=== PATIENT | male | born 1965 | race Caucasian/White ===

== ENCOUNTER → 2019-06-14 | Day surgery (SDC) | payer MEDICARE ==
[~2019-06-14] MED LIST: ACETAMINOPHEN 1000 MG/100 ML IV ONE; AMOXICILLIN500 M1 PO; ASPIR 8181 MG PO; BUPIVACAINE HCL 0.5% INJ 30 ML VIAL INJ ONE; CEFAZOLIN SOD 1 GM/NS 50ML 50 ML IV ONE; DEXAMETHASONE SOD PHOS INJ 4 MG/ML VIAL ONE; DILANTIN100 MG PO; GABAPENTIN300 MG PO; HYDROMORPHONE 1MG/1ML INJ ONE; JANUMET 50-5001 EACH PO; KEPPRA500 MG PO; KETOROLAC TROMETHAMINE 30 MG/ML VIAL ONE; LIDOCAINE HCL 2% LOCAL INJ 5 ML SDV VIAL INJ ONE; LOPRESSOR25 MG PO; MUPIROCIN 2% OINT 22 GM TUBE ONE; ONDANSETRON HCL INJ 2MG/ML 2ML 2 MG/ML VIAL ONE; PLAVIX75 MG PO; PROPOFOL IV EMULSION 10 MG/ML 20 ML VIAL ONE; SEVOFLURANE INHAL SOLN 250 ML PEN BTL ONE
--- OUTSIDE RECORDS SUMMARY | 2019-06-14 06:17 | XMS REPORT ---
Author Author [facility] Address Unknown Phone Unavailable Care Team Providers Care Central Office Equipment Installer Name Role Phone Patria JJ Unavailable Unavailable Payers Payer Name Policy Type Policy Number Effective Date Expiration Date Problems This patient has no known problems. Allergies, Adverse Reactions, Alerts Allergy Name Allergy Type Status Severity Reaction(s) Onset Date Inactive Date Treating Clinician Comments atorvastatin DA Active U 2019-02-25 00:00:00 No Known Allergies DA Active U 2015-08-09 00:00:00 Medications This patient has no known medications. Results Test Description Test Time Test Comments Text Results Atomic Results Result Comments ARTERIAL BLOOD GAS 2019-05-16 16:14:00 ARTERIAL BLOOD GAS PH (test code=PHA) 7.29 7.35-7.45 ARTERIAL BLOOD GAS PCO2 (test code=PCO2A) 49.7 mm Hg 35-45 ARTERIAL BLOOD GAS PO2 (test code=PO2A) 84.1 mmHg 80-100 BICARBONATE TOTAL HCO3 (test code=HCO3) 23.5 mmol/L 23.0-27.0 BASE EXCESS (test code=JEAN-CLAUDE) -3.2 mmol/L -3.0-5.0 Results called to and read back by ANESTHESIAat 14:39 - 02/20/2019; by JANES BOO RN ABG O2 SATURATION (test code=SATA) 94.5 % 90.0-98.0 ABG TYPE (test code=TYPEA) Arterial FIO2 (test code=FIO2A) 65.0 MODIFIED ALLENS (test code=MODALL) Unable CHECK PERFORMED SODIUM (test code=NA/ABG) 138.9 mEq/L 135-148 POTASSIUM (test code=K/ABG) 3.8 mEq/L 3.5-4.5 CHLORIDE (test code=CL/ABG) 107 mEq/L 98-106 GLUCOSE (test code=GLU/ABG) 194 mg/dL 74-99 HEMATOCRIT (test code=HCT/ABG) 29 % 42-52 IONIZED CALCIUM (test code=CAIABG) 0.97 mmol/L 1.1-1.37 TOTAL HGB (test code=THB) 9.7 gram/dL 13.0-17.5 HGB O2 SAT (test code=HBOSAT) 94.0 % 94.00-98.00 CARBOXYHEMOGLOBIN (test code=HOHGBT) 0.3 %totalHg 0.5-1.5 Results called to and read back by ANESTHESIAat 14:39 - 02/20/2019; by JANES BOO RN METHEMOGLOBIN (test code=METHGB) 0.2 % 0.0-1.50 O2 CONTENT (test code=O2CT) 12.9 % vol 18.0-22.0 MRI SPINE CERVICAL [id number] 11:07:00 [place] [address] Patient Name: NANCY BOO MR #: [id number] : 1965 Age/Sex: 53/M Req #: [id number] Adm Physician: Ordered by: YORDAN JJ DO Report #: [id number] Location: MRI Room/Bed: Procedure: [id number] MRI/M RI SPINE CERVICAL WO Exam Date: Exam Time: REPORT STATUS: Signed History: Pain, ne uropathy, numbness in hands and urine arm Comparison studies: None. Techn ique: Sagittal T1, T2 and IR, axial T2 and axial gradient echo Intravenous contrast: None Findings: Alignment: Normal cervical lordosis Cervi comedullary junction: No abnormalities. Patent foramen magnum. Soft tissues: No T2 hyperintense inflammatory changes. Spinal cord: Normal in size and signa l from the foramen magnum through T1 Vertebrae: No fractures, infection or neoplasm. Surgical changes of prior C6-C7 anterior cervical discectomy and fusion (ACDF) Degenerative changes: C2-C3: Mildly degenerated disc. Patent canal and foramina. C3-C4: Mildly degenerated disc. Asymmetric ri ght disc osteophyte complex with small central disc protrusion without signifi cant canal stenosis. Bilateral uncovertebral arthrosis and left facet arthrosi s with moderate bilateral foraminal stenosis. C4-C5: Mildly degenerated disc. Patent canal and foramina. C5-C6: Mildly degenerated disc. Small d isc bulge indents the thecal sac without significant canal stenosis. Mild bila teral foraminal stenosis due to uncovertebral and facet arthrosis. C6-C7: Few surgical level. Patent canal. Mild bilateral foraminal stenosis due to uncovertebral arthrosis. C7-T1: Mildly degenerated disc. Patent canal and foramina. IMPRESSION: 1. Surgical changes of prior C6-C7 ACDF. 2. Degenerative changes with mild multilevel disc degeneration and moderate b ilateral foraminal stenosis at C3-C4. No significant canal stenosis. Signed by: Dr. Eloy Rm M.D. on 04/03/2019 11:14 AM Dictated By: ELOY FARRAR MD 1114 Transc ribed By: ASIM on 04/03/19 1114 COPY TO: YORDAN JJ DO MRI SHOULDER LEFT [id number] 10:38:00 [place] [address] Patient Name: NANCY BOO MR #: [id number] : 1965 Age/Sex: 53/M Req #: [id number] Adm Physician: Ordered by: YORDAN JJ DO Report #: [id number] Location: MRI Room/Bed: Procedure: [id number] MRI/M RI SHOULDER LEFT WO Exam Date: Exam Time: REPORT STATUS: Signed MRI of the left shoulder without contrast. History: Shoulder pain. Decreased range of mot ion. Pain not responding to conservative management. Numbness. Neuralgia Comparison: None Technique: Coronal PD FS, sagital PD FS, and axial PD and PD FS. Findings: Rotator cuff: Mild rotator cuff tendinosis with mild ar ticular sided fraying involving the anterior fibers of the supraspinatus and i nfraspinatus tendons at the humeral insertion site. There are mild reactive ch anges at the adjacent humeral head. The subscapularis and teres minor tendons are intact. Osseous acromion complex: Type II acromion with mild lateral do wnsloping. Mild degenerative arthrosis at the acromioclavicular joint. Gl enohumeral joint: Mild degeneration and fraying of the labrum. The articular c artilage surfaces are intact. The humeral head is well-seated in the glenoid f starr. Biceps tendon: The biceps tendon is intact. Other findings: Nega tive for muscle denervation or osseous fracture. Impression: Mild rotator cuff tendinosis with mild articular sided fraying involving the anterior fibe rs of the supraspinatus and infraspinatus tendons at the humeral insertion sit e. There are mild reactive changes at the adjacent humeral head. Signed by: Dr. Johana Marcus M.D. on 04/03/2019 10:41 AM Dictated By: JOHANA Rivas MD, MD 104 Transcr ibed By: ASIM on 04/03/19 104 COPY TO: YORDAN JJ DO MRI ELBOW LEFT [id number] 10:19:00 [place] [address] Patient Name: NANCY BOO MR #: [id number] : 1965 Age/Sex: 53/M Req #: [id number] [facility] Physician: Ordered by: YORDAN JJ DO Report #: [id number] Location: MRI Room/Bed: Procedure: [id number] MRI/M RI ELBOW LEFT WO Exam Date: Exam Time: REPORT STATUS: Signed Left Elbow MRI wit hout contrast. History: Elbow pain. Neuropathy. Decreased range of motion. Numbness Comparison: None Technique: Coronal, sagittal, and axial PD FSE and PD FSE FS. Findings: The common extensor tendon origin is normal. The common flexor tendon origin is normal. The anterior and posterior bands of the MCL are normal. The lateral ulnar collateral ligament and radial collater al ligament proper are normal. No osteochondral lesions. Physiologic amount of fluid within the joint. Mild increased signal intensity within the ulnar nerve could be due to neuritis. The biceps and brachialis tendon inser tions are normal. The triceps tendon is normal. No fracture, osteonecrosis, or stress-related edema. Impression: Mild increased signal intensity within the ulnar nerve could be due to neuritis. Signed by: Dr. Johana gonzalez M.D. on 04/03/2019 10:21 AM Dictated By: JOHANA MARCUS MD, MD Electro nically Signed By: JOHANA MARCUS MD, MD on 04/03/19 1021 Transcribed By: ASIM on 04/03/19 1021 COPY TO: YORDAN JJ DO COAGULATION TIME [id number] 17:24:00* Test Item Value Reference Range Comments COAGULATION TIME ACTIVATED (test code=ACT) 150 seconds 62.8-88.0 COAGULATION TIME [id number] 17:24:00* Test Item Value Reference Range Comments COAGULATION TIME ACTIVATED (test code=ACT) 579 seconds 62.8-88.0 COAGULATION TIME [id number] 17:24:00* Test Item Value Reference Range Comments COAGULATION TIME ACTIVATED (test code=ACT) 570 seconds 62.8-88.0 COAGULATION TIME [id number] 17:24:00* Test Item Value Reference Range Comments COAGULATION TIME ACTIVATED (test code=ACT) 1002 seconds 62.8-88.0 COAGULATION TIME [id number] 17:24:00* Test Item Value Reference Range Comments COAGULATION TIME ACTIVATED (test code=ACT) 544 seconds 62.8-88.0 COAGULATION TIME [id number] 17:24:00* Test Item Value Reference Range Comments COAGULATION TIME ACTIVATED (test code=ACT) 123 seconds 62.8-88.0 ARTERIAL BLOOD [id number] 14:58:00* Test Item Value Reference Range Comments ARTERIAL BLOOD GAS PH (test code=PHA) 7.41 7.35-7.45 ARTERIAL BLOOD GAS PCO2 (test code=PCO2A) 40.2 mm Hg 35-45 ARTERIAL BLOOD GAS PO2 (test code=PO2A) 438.7 mmHg 80-100 BICARBONATE TOTAL HCO3 (test code=HCO3) 25.0 mmol/L 23.0-27.0 BASE EXCESS (test code=JEAN-CLAUDE) 0.3 mmol/L -3.0-5.0 ABG O2 SATURATION (test code=SATA) 98.9 % 90.0-98.0 ABG TYPE (test code=TYPEA) Arterial FIO2 (test code=FIO2A) 90.0 ABG SITE (test code=SITEA) ARTERIAL LINE MODIFIED ALLENS (test code=MODALL) Unable CHECK PERFORMED SODIUM (test code=NA/ABG) 134.6 mEq/L 135-148 POTASSIUM (test code=K/ABG) 4.5 mEq/L 3.5-4.5 CHLORIDE (test code=CL/ABG) 105 mEq/L 98-106 GLUCOSE (test code=GLU/ABG) 234 mg/dL 74-99 HEMATOCRIT (test code=HCT/ABG) 28 % 42-52 IONIZED CALCIUM (test code=CAIABG) 0.96 mmol/L 1.1-1.37 TOTAL HGB (test code=THB) 9.6 gram/dL 13.0-17.5 HGB O2 SAT (test code=HBOSAT) 98.3 % 94.00-98.00 CARBOXYHEMOGLOBIN (test code=HOHGBT) 0.3 %totalHg 0.5-1.5 Results called to and read back by DR Bee 13:56 - 02/20/2019; by MIRIAM SOTELO RN METHEMOGLOBIN (test code=METHGB) 0.3 % 0.0-1.50 O2 CONTENT (test code=O2CT) 14.5 % vol 18.0-22.0 ARTERIAL BLOOD [id number] 14:56:00* Test Item Value Reference Range Comments ARTERIAL BLOOD GAS PH (test code=PHA) 7.38 7.35-7.45 ARTERIAL BLOOD GAS PCO2 (test code=PCO2A) 44.3 mm Hg 35-45 ARTERIAL BLOOD GAS PO2 (test code=PO2A) 113.8 mmHg 80-100 BICARBONATE TOTAL HCO3 (test code=HCO3) 25.3 mmol/L 23.0-27.0 BASE EXCESS (test code=JEAN-CLAUDE) -0.1 mmol/L -3.0-5.0 ABG O2 SATURATION (test code=SATA) 97.8 % 90.0-98.0 ABG TYPE (test code=TYPEA) Arterial FIO2 (test code=FIO2A) 50.0 MODIFIED ALLENS (test code=MODALL) Unable CHECK PERFORMED SODIUM (test code=NA/ABG) 135.4 mEq/L 135-148 POTASSIUM (test code=K/ABG) 4.2 mEq/L 3.5-4.5 CHLORIDE (test code=CL/ABG) 103 mEq/L 98-106 GLUCOSE (test code=GLU/ABG) 187 mg/dL 74-99 HEMATOCRIT (test code=HCT/ABG) 41 % 42-52 IONIZED CALCIUM (test code=CAIABG) 1.09 mmol/L 1.1-1.37 TOTAL HGB (test code=THB) 14.0 gram/dL 13.0-17.5 HGB O2 SAT (test code=HBOSAT) 97.3 % 94.00-98.00 CARBOXYHEMOGLOBIN (test code=HOHGBT) 0.2 %totalHg 0.5-1.5 Results called to and read back by DR Bee 09:33 - 02/20/2019; by JOEL PATEL RN METHEMOGLOBIN (test code=METHGB) 0.3 % 0.0-1.50 O2 CONTENT (test code=O2CT) 19.3 % vol 18.0-22.0 ARTERIAL BLOOD [id number] 14:50:00* Test Item Value Reference Range Comments ARTERIAL BLOOD GAS PH (test code=PHA) 7.39 7.35-7.45 ARTERIAL BLOOD GAS PCO2 (test code=PCO2A) 39.8 mm Hg 35-45 ARTERIAL BLOOD GAS PO2 (test code=PO2A) 409.2 mmHg 80-100 BICARBONATE TOTAL HCO3 (test code=HCO3) 23.7 mmol/L 23.0-27.0 BASE EXCESS (test code=JEAN-CLAUDE) -1.1 mmol/L -3.0-5.0 ABG O2 SATURATION (test code=SATA) 99.0 % 90.0-98.0 ABG TYPE (test code=TYPEA) Arterial FIO2 (test code=FIO2A) 80.0 ABG SITE (test code=SITEA) ARTERIAL LINE MODIFIED ALLENS (test code=MODALL) Unable CHECK PERFORMED SODIUM (test code=NA/ABG) 136.5 mEq/L 135-148 POTASSIUM (test code=K/ABG) 4.5 mEq/L 3.5-4.5 CHLORIDE (test code=CL/ABG) 105 mEq/L 98-106 GLUCOSE (test code=GLU/ABG) 236 mg/dL 74-99 HEMATOCRIT (test code=HCT/ABG) 30 % 42-52 IONIZED CALCIUM (test code=CAIABG) 1.01 mmol/L 1.1-1.37 TOTAL HGB (test code=THB) 10.3 gram/dL 13.0-17.5 HGB O2 SAT (test code=HBOSAT) 98.4 % 94.00-98.00 CARBOXYHEMOGLOBIN (test code=HOHGBT) 0.3 %totalHg 0.5-1.5 Results called to and read back by DR Bee 13:20 - 02/20/2019; by JOEL PATEL RN METHEMOGLOBIN (test code=METHGB) 0.3 % 0.0-1.50 O2 CONTENT (test code=O2CT) 15.4 % vol 18.0-22.0 ARTERIAL BLOOD [id number] 14:49:00* Test Item Value Reference Range Comments ARTERIAL BLOOD GAS PH (test code=PHA) 7.41 7.35-7.45 ARTERIAL BLOOD GAS PCO2 (test code=PCO2A) 38.4 mm Hg 35-45 ARTERIAL BLOOD GAS PO2 (test code=PO2A) 349.7 mmHg 80-100 BICARBONATE TOTAL HCO3 (test code=HCO3) 23.8 mmol/L 23.0-27.0 BASE EXCESS (test code=JEAN-CLAUDE) -0.6 mmol/L -3.0-5.0 ABG O2 SATURATION (test code=SATA) 99.0 % 90.0-98.0 ABG TYPE (test code=TYPEA) Arterial FIO2 (test code=FIO2A) 80.0 MODIFIED ALLENS (test code=MODALL) Unable CHECK PERFORMED SODIUM (test code=NA/ABG) 135.7 mEq/L 135-148 POTASSIUM (test code=K/ABG) 4.8 mEq/L 3.5-4.5 CHLORIDE (test code=CL/ABG) 104 mEq/L 98-106 GLUCOSE (test code=GLU/ABG) 242 mg/dL 74-99 HEMATOCRIT (test code=HCT/ABG) 30 % 42-52 IONIZED CALCIUM (test code=CAIABG) 1.01 mmol/L 1.1-1.37 TOTAL HGB (test code=THB) 10.1 gram/dL 13.0-17.5 HGB O2 SAT (test code=HBOSAT) 98.4 % 94.00-98.00 CARBOXYHEMOGLOBIN (test code=HOHGBT) 0.3 %totalHg 0.5-1.5 Results called to and read back by DR Bee 12:51 - 02/20/2019; by JOEL PATEL RN METHEMOGLOBIN (test code=METHGB) 0.3 % 0.0-1.50 O2 CONTENT (test code=O2CT) 14.9 % vol 18.0-22.0 ARTERIAL BLOOD [id number] 14:47:00* Test Item Value Reference Range Comments ARTERIAL BLOOD GAS PH (test code=PHA) 7.45 7.35-7.45 ARTERIAL BLOOD GAS PCO2 (test code=PCO2A) 42.8 mm Hg 35-45 ARTERIAL BLOOD GAS PO2 (test code=PO2A) 420.7 mmHg 80-100 BICARBONATE TOTAL HCO3 (test code=HCO3) 29.0 mmol/L 23.0-27.0 BASE EXCESS (test code=JEAN-CLAUDE) 4.6 mmol/L -3.0-5.0 ABG O2 SATURATION (test code=SATA) 98.9 % 90.0-98.0 ABG TYPE (test code=TYPEA) Arterial FIO2 (test code=FIO2A) 80.0 ABG SITE (test code=SITEA) ARTERIAL LINE MODIFIED ALLENS (test code=MODALL) Unable CHECK PERFORMED SODIUM (test code=NA/ABG) 138.1 mEq/L 135-148 POTASSIUM (test code=K/ABG) 4.9 mEq/L 3.5-4.5 CHLORIDE (test code=CL/ABG) 104 mEq/L 98-106 GLUCOSE (test code=GLU/ABG) 256 mg/dL 74-99 HEMATOCRIT (test code=HCT/ABG) 29 % 42-52 IONIZED CALCIUM (test code=CAIABG) 0.96 mmol/L 1.1-1.37 TOTAL HGB (test code=THB) 9.9 gram/dL 13.0-17.5 HGB O2 SAT (test code=HBOSAT) 98.5 % 94.00-98.00 CARBOXYHEMOGLOBIN (test code=HOHGBT) 0.3 %totalHg 0.5-1.5 Results called to and read back by DR Bee 12:16 - 02/20/2019; by JOEL PATEL RN METHEMOGLOBIN (test code=METHGB) 0.1 % 0.0-1.50 O2 CONTENT (test code=O2CT) 14.9 % vol 18.0-22.0 ARTERIAL BLOOD [id number] 14:45:00* Test Item Value Reference Range Comments ARTERIAL BLOOD GAS PH (test code=PHA) 7.37 7.35-7.45 ARTERIAL BLOOD GAS PCO2 (test code=PCO2A) 43.8 mm Hg 35-45 ARTERIAL BLOOD GAS PO2 (test code=PO2A) 319.8 mmHg 80-100 BICARBONATE TOTAL HCO3 (test code=HCO3) 24.6 mmol/L 23.0-27.0 BASE EXCESS (test code=JEAN-CLAUDE) -0.8 mmol/L -3.0-5.0 ABG O2 SATURATION (test code=SATA) 98.9 % 90.0-98.0 ABG TYPE (test code=TYPEA) Arterial FIO2 (test code=FIO2A) 70.0 ABG SITE (test code=SITEA) ARTERIAL LINE MODIFIED ALLENS (test code=MODALL) Unable CHECK PERFORMED SODIUM (test code=NA/ABG) 133.5 mEq/L 135-148 POTASSIUM (test code=K/ABG) 5.1 mEq/L 3.5-4.5 CHLORIDE (test code=CL/ABG) 103 mEq/L 98-106 GLUCOSE (test code=GLU/ABG) 230 mg/dL 74-99 HEMATOCRIT (test code=HCT/ABG) 30 % 42-52 IONIZED CALCIUM (test code=CAIABG) 0.99 mmol/L 1.1-1.37 TOTAL HGB (test code=THB) 10.1 gram/dL 13.0-17.5 HGB O2 SAT (test code=HBOSAT) 98.3 % 94.00-98.00 CARBOXYHEMOGLOBIN (test code=HOHGBT) 0.3 %totalHg 0.5-1.5 Results called to and read back by DR Bee 11:47 - 03/21/2019; by JOEL PATEL RN METHEMOGLOBIN (test code=METHGB) 0.3 % 0.0-1.50 O2 CONTENT (test code=O2CT) 14.8 % vol 18.0-22.0 [id number] 13:10:00* Test Item Value Reference Range Comments GLUBED (test code=GLUBED) 93 mg/dL 74-106 Performed by certified wagon drill operator at [facility] - XR CHEST 1 [id number] 10:43:00 FAX: Jillian Granados [phone] [place]: B St: ADM FAX: Gwyn Reaves MD [phone] FAX: Trey Talavera MD [phone] FAX: Donny Couch NP Name: NANCY BOO [facility] : 1965 Age/S: 53/M [address] Unit #: [id number] Loc: V.2 [address] [address] Phys: Donny Couch NP Acct: [id number] Dis Date: Status: ADM IN PHONE #: [phone] Exam D ate: 02/26/2019 1019 FAX #: [phone] Reason: S /P CABG 02/20/19 EXAMS: CPT CODE: [id number] XR CHEST 1 V 16146 HISTORY: Coronary bypass. COMP ARISON: Previous day. Location: TH. Left lower lobe segmental atelectasis is unchanged. No effusion or congestion or infiltrat es. Cardiomegaly. IMPRESSION: No infiltrates o r congestion. Unchanged left basal segmental atelectasis. El ectronically Signed by Eliza Desai on 02/26/2019 at 1043 Reported and signed by: Iraj Desai M.D. CC: Jillian Menjivar MD; Gwyn Hurst MD; April Ybarra MD; Donny Couch NP Technologist: Chata Carias no R.T.(R) Trnscrd Date/Time/By: 02/26/2019 (1043 ) : By: [email or web address] Orig Print D/T: S: 02/26/2019 (0374) PAGE 1 Signed Report BASIC METABOLIC [id number] 08:35:00* Test Item Value Reference Range Comments SODIUM (test code=NA) 137 mmol/L 136-145 POTASSIUM (test code=K) 4.0 mmol/L 3.5-5.1 CHLORIDE (test code=CL) 102.0 mmol/L 98-107 CARBON DIOXIDE (test code=CO2) 28.0 mmol/L 21-32 ANION GAP (test code=GAP) 11.0 10-20 GLUCOSE (test code=GLU) 154 mg/dL 74-106 BLOOD UREA NITROGEN (test code=BUN) 9 mg/dL 7-18 GLOMERULAR FILTRATION RATE (test code=GFR) > 60 mL/min >=60 Estimated GFR by using Modified MDRD formula.Chronic kidney disease is defined as either kidney damageor GFR <60 mL/min/1.73 m2 for >3 months. CREATININE (test code=CREAT) 0.70 mg/dL 0.7-1.3 BUN/CREATININE RATIO (test code=BUN/CREA) 12.9 10-20 CALCIUM (test code=CA) 9.0 mg/dL 8.5-10.1 [id number] 08:35:00* Test Item Value Reference Range Comments MAGNESIUM (test code=MAG) 2.2 mg/dL 1.8-2.4 BASIC METABOLIC [id number] 08:26:00* Test Item Value Reference Range Comments SODIUM (test code=NA) 137 mmol/L 136-145 POTASSIUM (test code=K) 4.0 mmol/L 3.5-5.1 CHLORIDE (test code=CL) 102.0 mmol/L 98-107 CARBON DIOXIDE (test code=CO2) mmol/L 21-32 ANION GAP (test code=GAP) 10-20 GLUCOSE (test code=GLU) mg/dL 74-106 BLOOD UREA NITROGEN (test code=BUN) mg/dL 7-18 GLOMERULAR FILTRATION RATE (test code=GFR) mL/min >=60 CREATININE (test code=CREAT) mg/dL 0.7-1.3 BUN/CREATININE RATIO (test code=BUN/CREA) 10-20 CALCIUM (test code=CA) mg/dL 8.5-10.1 [id number] 08:26:00* Test Item Value Reference Range Comments MAGNESIUM (test code=MAG) mg/dL 1.8-2.4 CBC W/AUTO [id number] 07:56:00* Test Item Value Reference Range Comments WHITE BLOOD CELL (test code=WBC) 12.2 K/mm3 4.5-12.5 RED BLOOD CELL (test code=RBC) 3.32 mill/mm3 4.0-5.8 HEMOGLOBIN (test code=HGB) 10.5 gram/dL 13.0-17.5 HEMATOCRIT (test code=HCT) 31.1 % 42.0-52.0 MEAN CELL VOLUME (test code=MCV) 93.7 fL 80-98 MEAN CELL HGB (test code=MCH) 31.6 picogram 27.0-33.0 MEAN CELL HGB CONCETRATION (test code=MCHC) 33.8 gram/dL 33.0-36.0 RED CELL DISTRIBUTION WIDTH (test code=RDW) 12.0 % 11.6-16.2 RED CELL DISTRIBUTION WIDTH SD (test code=RDW-SD) 41.1 fL 37.0-51.0 PLATELET COUNT (test code=PLT) 484 K/mm3 150-450 MEAN PLATELET VOLUME (test code=MPV) 9.2 fL 6.7-11.0 NEUTROPHIL % (test code=NT%) 68.4 % 39.0-69.0 IMMATURE GRANULOCYTE % (test code=IG%) 1.2 % 0.0-5.0 LYMPHOCYTE % (test code=LY%) 17.6 % 25.0-55.0 MONOCYTE % (test code=MO%) 10.1 % 0.0-10.0 EOSINOPHIL % (test code=EO%) 2.0 % 0.0-5.0 BASOPHIL % (test code=BA%) 0.7 % 0.0-1.0 NUCLEATED RBC % (test code=NRBC%) 0.0 % 0-0 NEUTROPHIL # (test code=NT#) 8.35 K/mm3 1.8-7.7 IMMATURE GRANULOCYTE # (test code=IG#) 0.15 x10 3/uL 0-0.03 LYMPHOCYTE # (test code=LY#) 2.14 K/mm3 1.0-5.0 MONOCYTE # (test code=MO#) 1.23 K/mm3 0-0.8 EOSINOPHIL # (test code=EO#) 0.24 K/mm3 0.0-0.5 BASOPHIL # (test code=BA#) 0.08 K/mm3 0.0-0.2 NUCLEATED RBC # (test code=NRBC#) 0.00 K/mm3 0.0-0.1 MANUAL DIFF REQUIRED (test code=MDIFF) NO [id number] 06:06:00* Test Item Value Reference Range Comments GLUBED (test code=GLUBED) 111 mg/dL 74-106 Performed by certified wagon drill operator at [facility] [id number] 20:46:00* Test Item Value Reference Range Comments GLUBED (test code=GLUBED) 146 mg/dL 74-106 Performed by certified wagon drill operator at [facility] [id number] 16:49:00* Test Item Value Reference Range Comments GLUBED (test code=GLUBED) 95 mg/dL 74-106 Performed by certified wagon drill operator at [facility] [id number] 12:50:00* Test Item Value Reference Range Comments GLUBED (test code=GLUBED) 119 mg/dL 74-106 Performed by certified wagon drill operator at [facility] - XR CHEST 1 [id number] 08:07:00 FAX: Alejandro Valle [phone] [place]: St: ADM FAX: Jillian Granados [phone] FAX: Gwyn Reaves MD [phone] FAX: Trey Talavera MD [phone] Name: NANCY BOO [facility] : 1965 Age/S: 53/M [address] [facility] Unit #: [id number] Loc: V.2 096 [place] [address] Phys: Alejandro Valle Acct: [id number] Dis Date: Status: ADM IN PHONE #: [phone] Exam D ate: 02/25/2019 0749 FAX #: [phone] Reason: u pdated pulm view, S/P CABG EXAMS: CPT CODE: [id number] XR CHEST 1 V 92015 HISTORY: Post coronary bypass. COMPARISON: Previous day. Location: TH. Bibasal sub segmental atelectasis is improved with improving bibasal infiltrates as we ll. No effusion or congestion. Cardiomegaly. IMPRESSION: Improving right basal infiltrates, greater on the left with associa kevin subsegmental atelectasis. at 0807 Reported and signed b y: Iraj Desai M.D. CC: Alejandro Valle; Jennyfer Hernandez MD; Gwyn Hurst MD, Deepak MD Technologist: Steph Blanco RT(R); Edmund Landaverde RT(R) Trnscrd Date/Time/By: 02/25/2019 (0807) : By: [email or web address] Orig Print D/T: S: 02/25/2019 (0810) PAGE 1 Signed Report BASIC METABOLIC PANEL 2019-02-25 07:51:00* Test Item Value Reference Range Comments SODIUM (test code=NA) 137 mmol/L 136-145 POTASSIUM (test code=K) 3.9 mmol/L 3.5-5.1 CHLORIDE (test code=CL) 104.0 mmol/L 98-107 CARBON DIOXIDE (test code=CO2) 27.0 mmol/L 21-32 ANION GAP (test code=GAP) 9.9 10-20 GLUCOSE (test code=GLU) 113 mg/dL 74-106 BLOOD UREA NITROGEN (test code=BUN) 8 mg/dL 7-18 GLOMERULAR FILTRATION RATE (test code=GFR) > 60 mL/min >=60 Estimated GFR by using Modified MDRD formula.Chronic kidney disease is defined as either kidney damageor GFR <60 mL/min/1.73 m2 for >3 months. CREATININE (test code=CREAT) 0.60 mg/dL 0.7-1.3 BUN/CREATININE RATIO (test code=BUN/CREA) 13.7 10-20 CALCIUM (test code=CA) 8.5 mg/dL 8.5-10.1 [id number] 07:51:00* Test Item Value Reference Range Comments PHOSPHORUS (test code=PHOS) 3.8 mg/dL 2.5-4.9 [id number] 07:51:00* Test Item Value Reference Range Comments MAGNESIUM (test code=MAG) 2.1 mg/dL 1.8-2.4 CALCIUM [id number] 07:51:00* Test Item Value Reference Range Comments CALCIUM IONIZED (test code=CHARLY) 1.25 mmol/L 1.12-1.32 BASIC METABOLIC [id number] 07:45:00* Test Item Value Reference Range Comments SODIUM (test code=NA) 137 mmol/L 136-145 POTASSIUM (test code=K) 3.9 mmol/L 3.5-5.1 CHLORIDE (test code=CL) 104.0 mmol/L 98-107 CARBON DIOXIDE (test code=CO2) mmol/L 21-32 ANION GAP (test code=GAP) 10-20 GLUCOSE (test code=GLU) mg/dL 74-106 BLOOD UREA NITROGEN (test code=BUN) mg/dL 7-18 GLOMERULAR FILTRATION RATE (test code=GFR) mL/min >=60 CREATININE (test code=CREAT) mg/dL 0.7-1.3 BUN/CREATININE RATIO (test code=BUN/CREA) 10-20 CALCIUM (test code=CA) mg/dL 8.5-10.1 [id number] 07:45:00* Test Item Value Reference Range Comments PHOSPHORUS (test code=PHOS) mg/dL 2.5-4.9 [id number] 07:45:00* Test Item Value Reference Range Comments MAGNESIUM (test code=MAG) mg/dL 1.8-2.4 CALCIUM [id number] 07:45:00* Test Item Value Reference Range Comments CALCIUM IONIZED (test code=CHARLY) 1.25 mmol/L 1.12-1.32 BASIC METABOLIC [id number] 07:41:00* Test Item Value Reference Range Comments SODIUM (test code=NA) mmol/L 136-145 POTASSIUM (test code=K) mmol/L 3.5-5.1 CHLORIDE (test code=CL) mmol/L 98-107 CARBON DIOXIDE (test code=CO2) mmol/L 21-32 ANION GAP (test code=GAP) 10-20 GLUCOSE (test code=GLU) mg/dL 74-106 BLOOD UREA NITROGEN (test code=BUN) mg/dL 7-18 GLOMERULAR FILTRATION RATE (test code=GFR) mL/min >=60 CREATININE (test code=CREAT) mg/dL 0.7-1.3 BUN/CREATININE RATIO (test code=BUN/CREA) 10-20 CALCIUM (test code=CA) mg/dL 8.5-10.1 [id number] 07:41:00* Test Item Value Reference Range Comments PHOSPHORUS (test code=PHOS) mg/dL 2.5-4.9 [id number] 07:41:00* Test Item Value Reference Range Comments MAGNESIUM (test code=MAG) mg/dL 1.8-2.4 CALCIUM [id number] 07:41:00* Test Item Value Reference Range Comments CALCIUM IONIZED (test code=CHARLY) 1.25 mmol/L 1.12-1.32 CBC W/AUTO [id number] 07:34:00* Test Item Value Reference Range Comments WHITE BLOOD CELL (test code=WBC) 11.1 K/mm3 4.5-12.5 RED BLOOD CELL (test code=RBC) 3.02 mill/mm3 4.0-5.8 HEMOGLOBIN (test code=HGB) 9.5 gram/dL 13.0-17.5 HEMATOCRIT (test code=HCT) 28.8 % 42.0-52.0 MEAN CELL VOLUME (test code=MCV) 95.4 fL 80-98 MEAN CELL HGB (test code=MCH) 31.5 picogram 27.0-33.0 MEAN CELL HGB CONCETRATION (test code=MCHC) 33.0 gram/dL 33.0-36.0 RED CELL DISTRIBUTION WIDTH (test code=RDW) 11.9 % 11.6-16.2 RED CELL DISTRIBUTION WIDTH SD (test code=RDW-SD) 41.5 fL 37.0-51.0 PLATELET COUNT (test code=PLT) 385 K/mm3 150-450 RESULT VERIFIED BY REPEAT ANALYSIS MEAN PLATELET VOLUME (test code=MPV) 9.5 fL 6.7-11.0 NEUTROPHIL % (test code=NT%) 65.3 % 39.0-69.0 IMMATURE GRANULOCYTE % (test code=IG%) 0.9 % 0.0-5.0 LYMPHOCYTE % (test code=LY%) 20.8 % 25.0-55.0 MONOCYTE % (test code=MO%) 10.9 % 0.0-10.0 EOSINOPHIL % (test code=EO%) 1.6 % 0.0-5.0 BASOPHIL % (test code=BA%) 0.5 % 0.0-1.0 NUCLEATED RBC % (test code=NRBC%) 0.0 % 0-0 NEUTROPHIL # (test code=NT#) 7.26 K/mm3 1.8-7.7 IMMATURE GRANULOCYTE # (test code=IG#) 0.10 x10 3/uL 0-0.03 LYMPHOCYTE # (test code=LY#) 2.31 K/mm3 1.0-5.0 MONOCYTE # (test code=MO#) 1.21 K/mm3 0-0.8 EOSINOPHIL # (test code=EO#) 0.18 K/mm3 0.0-0.5 BASOPHIL # (test code=BA#) 0.05 K/mm3 0.0-0.2 NUCLEATED RBC # (test code=NRBC#) 0.00 K/mm3 0.0-0.1 [id number] 05:53:00* Test Item Value Reference Range Comments GLUBED (test code=GLUBED) 110 mg/dL 74-106 Performed by certified wagon drill operator at [facility] [id number] 20:40:00* Test Item Value Reference Range Comments GLUBED (test code=GLUBED) 109 mg/dL 74-106 Performed by certified wagon drill operator at [facility] [id number] 18:52:00* Test Item Value Reference Range Comments GLUBED (test code=GLUBED) 139 mg/dL 74-106 Performed by certified wagon drill operator at [facility] [id number] 13:42:00* Test Item Value Reference Range Comments GLUBED (test code=GLUBED) 96 mg/dL 74-106 Performed by certified wagon drill operator at [facility] BASIC METABOLIC [id number] 09:15:00* Test Item Value Reference Range Comments SODIUM (test code=NA) 138 mmol/L 136-145 POTASSIUM (test code=K) 3.9 mmol/L 3.5-5.1 CHLORIDE (test code=CL) 104.0 mmol/L 98-107 CARBON DIOXIDE (test code=CO2) 27.0 mmol/L 21-32 ANION GAP (test code=GAP) 10.9 10-20 GLUCOSE (test code=GLU) 126 mg/dL 74-106 BLOOD UREA NITROGEN (test code=BUN) 9 mg/dL 7-18 GLOMERULAR FILTRATION RATE (test code=GFR) > 60 mL/min >=60 Estimated GFR by using Modified MDRD formula.Chronic kidney disease is defined as either kidney damageor GFR <60 mL/min/1.73 m2 for >3 months. CREATININE (test code=CREAT) 0.60 mg/dL 0.7-1.3 BUN/CREATININE RATIO (test code=BUN/CREA) 14.2 10-20 CALCIUM (test code=CA) 8.5 mg/dL 8.5-10.1 - XR CHEST 1 [id number] 08:45:00 FAX: Alejandro Valle [phone] [place]: St: ADM FAX: Jillian Granados [phone] FAX: Gwyn Reaves MD [phone] FAX: Trey Talavera MD [phone] Name: NANCY BOO [facility] : 1965 Age/S: 53/M [address] [facility] Unit #: [id number] Loc: V.2 [address] [place] [address] Phys: Alejandro Valle Acct: [id number] Dis Date: Status: ADM IN PHONE #: [phone] Exam D ate: 02/24/2019 0735 FAX #: [phone] Reason: u pdated pulm view, S/P CABG EXAMS: CPT CODE: [id number] XR CHEST 1 V 85258 REASON FOR EXAM: updated pulm view, S/P CABG Exam Order Date: 02/24/2019 4:00 AM Shelby lin M.D.: MICHEL Hernandez PROCEDURE: - XR CHEST 1 V C OMPARISON: Frontal chest x-ray the previous morning FINDINGS: Postsurgical changes of CABG are redemonstrated. There are opacities in the infrahilar right lung and left retrocardiac space which may represent any combination of atelectasis, small layering effusions, and consolidat ion. Compared to the prior exam these opacities have slightly improved. Upper abdomen is radiographically unremarkable. IMPRESSION: Slightly improved aeration of the lungs from the prior e xam. Location: [facility] at 0845 Reported and signed by: Maikol Sands MD CC: Alejandro Valle; Jillian Hernandez MD; Gwyn Carrion MD, Deepak MD Technologist: VINICIO IVEY RT(R) Trnscrd Date/Time/By: 02/24/2019 (0811) : By: [email or web address] Orig Print D/T: S: 1 04/27/2018 (0877) PAGE 1 Signed Re port [id number] 07:27:00* Test Item Value Reference Range Comments PHOSPHORUS (test code=PHOS) 3.4 mg/dL 2.5-4.9 [id number] 07:27:00* Test Item Value Reference Range Comments MAGNESIUM (test code=MAG) 2.0 mg/dL 1.8-2.4 CALCIUM [id number] 07:27:00* Test Item Value Reference Range Comments CALCIUM IONIZED (test code=CHARLY) 1.21 mmol/L 1.12-1.32 [id number] 06:49:00* Test Item Value Reference Range Comments PHOSPHORUS (test code=PHOS) 3.4 mg/dL 2.5-4.9 [id number] 06:49:00* Test Item Value Reference Range Comments MAGNESIUM (test code=MAG) 2.0 mg/dL 1.8-2.4 CALCIUM [id number] 06:49:00* Test Item Value Reference Range Comments CALCIUM IONIZED (test code=CHARLY) mmol/L 1.12-1.32 [id number] 06:42:00* Test Item Value Reference Range Comments PHOSPHORUS (test code=PHOS) mg/dL 2.5-4.9 [id number] 06:42:00* Test Item Value Reference Range Comments MAGNESIUM (test code=MAG) 2.0 mg/dL 1.8-2.4 CALCIUM [id number] 06:42:00* Test Item Value Reference Range Comments CALCIUM IONIZED (test code=CHARLY) mmol/L 1.12-1.32 [id number] 06:27:00* Test Item Value Reference Range Comments GLUBED (test code=GLUBED) 113 mg/dL 74-106 Performed by certified wagon drill operator at [facility] CBC W/AUTO [id number] 06:20:00* Test Item Value Reference Range Comments WHITE BLOOD CELL (test code=WBC) 10.7 K/mm3 4.5-12.5 RED BLOOD CELL (test code=RBC) 2.83 mill/mm3 4.0-5.8 HEMOGLOBIN (test code=HGB) 9.0 gram/dL 13.0-17.5 HEMATOCRIT (test code=HCT) 27.3 % 42.0-52.0 MEAN CELL VOLUME (test code=MCV) 96.5 fL 80-98 MEAN CELL HGB (test code=MCH) 31.8 picogram 27.0-33.0 MEAN CELL HGB CONCETRATION (test code=MCHC) 33.0 gram/dL 33.0-36.0 RED CELL DISTRIBUTION WIDTH (test code=RDW) 11.8 % 11.6-16.2 RED CELL DISTRIBUTION WIDTH SD (test code=RDW-SD) 41.5 fL 37.0-51.0 PLATELET COUNT (test code=PLT) 290 K/mm3 150-450 MEAN PLATELET VOLUME (test code=MPV) 10.0 fL 6.7-11.0 NEUTROPHIL % (test code=NT%) 70.1 % 39.0-69.0 IMMATURE GRANULOCYTE % (test code=IG%) 0.7 % 0.0-5.0 LYMPHOCYTE % (test code=LY%) 19.0 % 25.0-55.0 MONOCYTE % (test code=MO%) 9.1 % 0.0-10.0 EOSINOPHIL % (test code=EO%) 0.6 % 0.0-5.0 BASOPHIL % (test code=BA%) 0.5 % 0.0-1.0 NUCLEATED RBC % (test code=NRBC%) 0.0 % 0-0 NEUTROPHIL # (test code=NT#) 7.52 K/mm3 1.8-7.7 IMMATURE GRANULOCYTE # (test code=IG#) 0.08 x10 3/uL 0-0.03 LYMPHOCYTE # (test code=LY#) 2.03 K/mm3 1.0-5.0 MONOCYTE # (test code=MO#) 0.97 K/mm3 0-0.8 EOSINOPHIL # (test code=EO#) 0.06 K/mm3 0.0-0.5 BASOPHIL # (test code=BA#) 0.05 K/mm3 0.0-0.2 NUCLEATED RBC # (test code=NRBC#) 0.00 K/mm3 0.0-0.1 MANUAL DIFF REQUIRED (test code=MDIFF) NO [id number] 20:45:00* Test Item Value Reference Range Comments GLUBED (test code=GLUBED) 148 mg/dL 74-106 Performed by certified wagon drill operator at [facility] [id number] 17:41:00* Test Item Value Reference Range Comments GLUBED (test code=GLUBED) 135 mg/dL 74-106 Performed by certified wagon drill operator at [facility] [id number] 12:04:00* Test Item Value Reference Range Comments GLUBED (test code=GLUBED) 111 mg/dL 74-106 Performed by certified wagon drill operator at [facility] [id number] 07:35:00* Test Item Value Reference Range Comments GLUBED (test code=GLUBED) 179 mg/dL 74-106 Performed by certified wagon drill operator at [facility] - XR CHEST 1 [id number] 07:30:00 FAX: Alejandro Valle [phone] [place]: B St: ADM FAX: Jillian Granados [phone] FAX: Gwyn Reaves MD [phone] FAX: Trey Talavera MD [phone] Name: NANCY BOO [facility] : 1965 Age/S: 53/M [address] Unit #: [id number] Loc: V.S [address] [place] [address] Phys: Alejandro Valle Acct: [id number] Dis Date: Status: ADM IN PHONE #: [phone] Exam D ate: 02/23/2019 0427 FAX #: [phone] Reason: u pdated pulm view, S/P CABG EXAMS: CPT CODE: [id number] XR CHEST 1 V 73159 HISTORY: Post coronary bypass. COMPARISON: Previous day. Location: TH. Right centr al line is unchanged. Patchy right medial lung infiltrate. Dependent amarilis nges bilaterally. No effusion or congestion. Moderate cardiomegaly. Cer vical fusion in the lower neck. IMPRESSION: Michel dillard new right mid lung infiltrate. at 0430 Reported and signed by: Iraj Desai M.D. CC: Alejandro Valle; Jillian Hernandez MD; Gwyn Hurst MD, Deepak MD Technologist: [facility] Quintana [facility] Date/Time/By: 02/23/2019 (8630) : By: [email or web address] Orig Print D/T: S: 02/23/2019 (5816) PAGE 1 Signed Report BASIC METABOLIC [id number] 04:20:00* Test Item Value Reference Range Comments SODIUM (test code=NA) 138 mmol/L 136-145 POTASSIUM (test code=K) 3.9 mmol/L 3.5-5.1 CHLORIDE (test code=CL) 102.0 mmol/L 98-107 CARBON DIOXIDE (test code=CO2) 30.0 mmol/L 21-32 ANION GAP (test code=GAP) 9.9 10-20 GLUCOSE (test code=GLU) 123 mg/dL 74-106 BLOOD UREA NITROGEN (test code=BUN) 8 mg/dL 7-18 GLOMERULAR FILTRATION RATE (test code=GFR) > 60 mL/min >=60 Estimated GFR by using Modified MDRD formula.Chronic kidney disease is defined as either kidney damageor GFR <60 mL/min/1.73 m2 for >3 months. CREATININE (test code=CREAT) 0.60 mg/dL 0.7-1.3 BUN/CREATININE RATIO (test code=BUN/CREA) 13.7 10-20 CALCIUM (test code=CA) 8.1 mg/dL 8.5-10.1 [id number] 04:20:00* Test Item Value Reference Range Comments PHOSPHORUS (test code=PHOS) 2.8 mg/dL 2.5-4.9 [id number] 04:20:00* Test Item Value Reference Range Comments MAGNESIUM (test code=MAG) 1.8 mg/dL 1.8-2.4 CALCIUM [id number] 04:20:00* Test Item Value Reference Range Comments CALCIUM IONIZED (test code=CHARLY) 1.21 mmol/L 1.12-1.32 BASIC METABOLIC [id number] 04:13:00* Test Item Value Reference Range Comments SODIUM (test code=NA) 138 mmol/L 136-145 POTASSIUM (test code=K) 3.9 mmol/L 3.5-5.1 CHLORIDE (test code=CL) 102.0 mmol/L 98-107 CARBON DIOXIDE (test code=CO2) 30.0 mmol/L 21-32 ANION GAP (test code=GAP) 9.9 10-20 GLUCOSE (test code=GLU) 123 mg/dL 74-106 BLOOD UREA NITROGEN (test code=BUN) 8 mg/dL 7-18 GLOMERULAR FILTRATION RATE (test code=GFR) > 60 mL/min >=60 Estimated GFR by using Modified MDRD formula.Chronic kidney disease is defined as either kidney damageor GFR <60 mL/min/1.73 m2 for >3 months. CREATININE (test code=CREAT) 0.60 mg/dL 0.7-1.3 BUN/CREATININE RATIO (test code=BUN/CREA) 13.7 10-20 CALCIUM (test code=CA) 8.1 mg/dL 8.5-10.1 [id number] 04:13:00* Test Item Value Reference Range Comments PHOSPHORUS (test code=PHOS) 2.8 mg/dL 2.5-4.9 [id number] 04:13:00* Test Item Value Reference Range Comments MAGNESIUM (test code=MAG) 1.8 mg/dL 1.8-2.4 CALCIUM [id number] 04:13:00* Test Item Value Reference Range Comments CALCIUM IONIZED (test code=CHARLY) mmol/L 1.12-1.32 CBC W/AUTO [id number] 03:49:00* Test Item Value Reference Range Comments WHITE BLOOD CELL (test code=WBC) 11.8 K/mm3 4.5-12.5 RED BLOOD CELL (test code=RBC) 2.85 mill/mm3 4.0-5.8 HEMOGLOBIN (test code=HGB) 9.1 gram/dL 13.0-17.5 HEMATOCRIT (test code=HCT) 27.6 % 42.0-52.0 MEAN CELL VOLUME (test code=MCV) 96.8 fL 80-98 MEAN CELL HGB (test code=MCH) 31.9 picogram 27.0-33.0 MEAN CELL HGB CONCETRATION (test code=MCHC) 33.0 gram/dL 33.0-36.0 RED CELL DISTRIBUTION WIDTH (test code=RDW) 11.9 % 11.6-16.2 RED CELL DISTRIBUTION WIDTH SD (test code=RDW-SD) 42.1 fL 37.0-51.0 PLATELET COUNT (test code=PLT) 245 K/mm3 150-450 MEAN PLATELET VOLUME (test code=MPV) 10.0 fL 6.7-11.0 NEUTROPHIL % (test code=NT%) 65.5 % 39.0-69.0 IMMATURE GRANULOCYTE % (test code=IG%) 0.4 % 0.0-5.0 LYMPHOCYTE % (test code=LY%) 21.4 % 25.0-55.0 MONOCYTE % (test code=MO%) 12.0 % 0.0-10.0 EOSINOPHIL % (test code=EO%) 0.3 % 0.0-5.0 BASOPHIL % (test code=BA%) 0.4 % 0.0-1.0 NUCLEATED RBC % (test code=NRBC%) 0.0 % 0-0 NEUTROPHIL # (test code=NT#) 7.71 K/mm3 1.8-7.7 IMMATURE GRANULOCYTE # (test code=IG#) 0.05 x10 3/uL 0-0.03 LYMPHOCYTE # (test code=LY#) 2.53 K/mm3 1.0-5.0 MONOCYTE # (test code=MO#) 1.42 K/mm3 0-0.8 EOSINOPHIL # (test code=EO#) 0.04 K/mm3 0.0-0.5 BASOPHIL # (test code=BA#) 0.05 K/mm3 0.0-0.2 NUCLEATED RBC # (test code=NRBC#) 0.00 K/mm3 0.0-0.1 MANUAL DIFF REQUIRED (test code=MDIFF) NO [id number] 02:35:00* Test Item Value Reference Range Comments GLUBED (test code=GLUBED) 103 mg/dL 74-106 Performed by certified wagon drill operator at [facility] PROTHROMBIN [id number] 20:33:00* Test Item Value Reference Range Comments PROTHROMBIN TIME PATIENT (test code=PTP) 13.2 seconds 9.0-14.0 INTERNATIONAL NORMAL RATIO (test code=INR) 1.1 0.8-1.2 The therapeutic range for oral anticoagulant therapy formost indications is an international normalized ratio (INR)of between 2.0 and 3.0. The recommended therapeutic INRrange for various clinical situations is listed below: Clinical Situation INR range Pulmonary e mbolism treatment (2.0-3.0)Venous thrombosis treatmentVenous thrombosis prophylaxis (high risk surgery)Prevention of systemic embolism from: Acute myocardial infarction Valvular heart disease Atrial fibrillation Mechanical prosthetic heart valves (2.5-3.5) IS PATIENT ON ANTICOAGULANTS? YLIST ANTICOAGULANTS ASPIRIN PLAVIX THROMBOPLASTIN TIME [id number] 20:33:00* Test Item Value Reference Range Comments THROMBOPLASTIN TIME PARTIAL (test code=PTT) 32.9 seconds 25.0-36.5 IS PATIENT ON ANTICOAGULANTS? YLIST ANTICOAGULANTS ASPIRIN PLAVIXGLUBED 2019-02-22 19:52:00* Test Item Value Reference Range Comments GLUBED (test code=GLUBED) 136 mg/dL 74-106 Performed by certified wagon drill operator at [facility] BASIC METABOLIC [id number] 19:16:00* Test Item Value Reference Range Comments SODIUM (test code=NA) 137 mmol/L 136-145 POTASSIUM (test code=K) 3.8 mmol/L 3.5-5.1 CHLORIDE (test code=CL) 103.0 mmol/L 98-107 CARBON DIOXIDE (test code=CO2) 29.0 mmol/L 21-32 ANION GAP (test code=GAP) 8.8 10-20 GLUCOSE (test code=GLU) 140 mg/dL 74-106 BLOOD UREA NITROGEN (test code=BUN) 6 mg/dL 7-18 GLOMERULAR FILTRATION RATE (test code=GFR) > 60 mL/min >=60 Estimated GFR by using Modified MDRD formula.Chronic kidney disease is defined as either kidney damageor GFR <60 mL/min/1.73 m2 for >3 months. CREATININE (test code=CREAT) 0.50 mg/dL 0.7-1.3 BUN/CREATININE RATIO (test code=BUN/CREA) 11.3 10-20 CALCIUM (test code=CA) 8.5 mg/dL 8.5-10.1 [id number] 19:16:00* Test Item Value Reference Range Comments PHOSPHORUS (test code=PHOS) 2.6 mg/dL 2.5-4.9 [id number] 19:16:00* Test Item Value Reference Range Comments MAGNESIUM (test code=MAG) 2.0 mg/dL 1.8-2.4 BASIC METABOLIC [id number] 19:09:00* Test Item Value Reference Range Comments SODIUM (test code=NA) 137 mmol/L 136-145 POTASSIUM (test code=K) 3.8 mmol/L 3.5-5.1 CHLORIDE (test code=CL) 103.0 mmol/L 98-107 CARBON DIOXIDE (test code=CO2) mmol/L 21-32 ANION GAP (test code=GAP) 10-20 GLUCOSE (test code=GLU) mg/dL 74-106 BLOOD UREA NITROGEN (test code=BUN) mg/dL 7-18 GLOMERULAR FILTRATION RATE (test code=GFR) mL/min >=60 CREATININE (test code=CREAT) mg/dL 0.7-1.3 BUN/CREATININE RATIO (test code=BUN/CREA) 10-20 CALCIUM (test code=CA) mg/dL 8.5-10.1 [id number] 19:09:00* Test Item Value Reference Range Comments PHOSPHORUS (test code=PHOS) mg/dL 2.5-4.9 [id number] 19:09:00* Test Item Value Reference Range Comments MAGNESIUM (test code=MAG) mg/dL 1.8-2.4 CBC W/AUTO [id number] 19:07:00* Test Item Value Reference Range Comments WHITE BLOOD CELL (test code=WBC) 11.6 K/mm3 4.5-12.5 RED BLOOD CELL (test code=RBC) 2.98 mill/mm3 4.0-5.8 HEMOGLOBIN (test code=HGB) 9.4 gram/dL 13.0-17.5 HEMATOCRIT (test code=HCT) 27.9 % 42.0-52.0 MEAN CELL VOLUME (test code=MCV) 93.6 fL 80-98 MEAN CELL HGB (test code=MCH) 31.5 picogram 27.0-33.0 MEAN CELL HGB CONCETRATION (test code=MCHC) 33.7 gram/dL 33.0-36.0 RED CELL DISTRIBUTION WIDTH (test code=RDW) 11.9 % 11.6-16.2 RED CELL DISTRIBUTION WIDTH SD (test code=RDW-SD) 40.7 fL 37.0-51.0 PLATELET COUNT (test code=PLT) 240 K/mm3 150-450 MEAN PLATELET VOLUME (test code=MPV) 10.3 fL 6.7-11.0 NEUTROPHIL % (test code=NT%) 69.5 % 39.0-69.0 IMMATURE GRANULOCYTE % (test code=IG%) 0.6 % 0.0-5.0 LYMPHOCYTE % (test code=LY%) 18.6 % 25.0-55.0 MONOCYTE % (test code=MO%) 10.8 % 0.0-10.0 EOSINOPHIL % (test code=EO%) 0.1 % 0.0-5.0 BASOPHIL % (test code=BA%) 0.4 % 0.0-1.0 NUCLEATED RBC % (test code=NRBC%) 0.0 % 0-0 NEUTROPHIL # (test code=NT#) 8.06 K/mm3 1.8-7.7 IMMATURE GRANULOCYTE # (test code=IG#) 0.07 x10 3/uL 0-0.03 LYMPHOCYTE # (test code=LY#) 2.16 K/mm3 1.0-5.0 MONOCYTE # (test code=MO#) 1.25 K/mm3 0-0.8 EOSINOPHIL # (test code=EO#) 0.01 K/mm3 0.0-0.5 BASOPHIL # (test code=BA#) 0.05 K/mm3 0.0-0.2 NUCLEATED RBC # (test code=NRBC#) 0.00 K/mm3 0.0-0.1 MANUAL DIFF REQUIRED (test code=MDIFF) NO - XR ABDOMEN AP 1 [id number] 19:04:00 FAX: Jillian Granados [phone] [place]: St: ADM FAX: Gwyn Reaves MD [phone] FAX: Trey Talavera MD [phone] FAX: Coral Bah MD Name: NANCY BOO [facility] : 1965 Age/S: 53/M [address] [facility] Unit #: [id number] Loc: V.S [address] [place] [address] Phys: Coral Bah MD Acct: [id number] Dis Date: Status: ADM IN PHONE #: [phone] Exam D ate: 02/22/2019 1845 FAX #: [phone] Reason: a bdominal distension EXAMS: CPT CODE: [id number] XR ABDOMEN AP 1 V 98025 REASON FOR EXAM: abdominal distension EXAM ORDER DATE: 02/22/2019 12:00 AM Ordering: Coral Bah MD Attending:Jillian Hernandez MD Location: PROCEDURE: - XR ABDOMEN AP 1 V COMPARISON: FINDINGS: One view of the abdomen obtained at 6:45 PM. Scattered fecal material is seen in the colon. No evidence of organomegaly or evidence of ascites. No evidence of free air. IMPRESSION: Mild diffuse ga seous distention of small bowel loops suggestive of ileus. E lectronically Signed by Eliza Nicole on 02/22/2019 at 1904 Reported and signed by: Ortega Nicole M.D. CC: Jillian Hernandez Ra, MD; Gwyn Hurst MD; Trey Ybarra MD; Cadence Bah MD Technologist: BHANU GOLDBERG; JESSICA BELL O, RT(R) Trnscrd Date/Time/By: 02/22/2019 (1903) : By: Lisa.Cristal TL Orig Print D/T: S: 02/22/2019 (1906) PAGE 1 Signed Report - XR CHEST 1 [id number] 19:02:00 FAX: Jillian Granados [phone] [place]: St: [facility] FAX: Gwyn Reaves MD [phone] FAX: Trey Talavera MD [phone] FAX: Mari Crump Name: NANCY BOO [facility] : 1965 Age/S: 53/M [address] [facility] Unit #: [id number] Loc: V.S [address] [place] [address] Phys: Mari Vogel BILINGUAL RESEARCH INTERVIEWER Acct: [id number] Dis Date: Status: ADM IN PHONE #: [phone] Exam D ate: 02/22/2019 1850 FAX #: [phone] Reason: C HANGE IN PATIENT STATUS EXAMS: CPT CODE: [id number] XR CHEST 1 V 16402 REASON FOR EXAM: CHANGE IN PATIENT S TATUS EXAM ORDER DATE: 02/22/2019 6:49 PM Ordering: Mari Vogel NP Attending:Jillian Hernandez MD Loca tion:VL PROCEDURE: - XR CHEST 1 V COMPARISON: 02/22 at 12:12 PM FINDINGS: Portable AP frontal view of the chest obtained at 6:52 PM shows clear lungs without evidence of consolidation. There is no evidence of effusion. The heart size is within normal limits. Pulmonary vasculatures are unremarkable. Stable appearance of a right IJ central line. IMPRESSION: Atelectasis at the bases at 1902 Reported and signed by: Ortega Nicole M.D. CC: Jillian Hernandez MD; Gwyn Hurst MD; Trey Ybarra MD; Mari Vogel NP Technologist: RT DAVID(Maikol) Trnscrd Date/Time/By: 02/22/2019 (1901) : By: víctor MAHMOODL Orig Print D/T: S: 02/23/2019 (0814) PAGE 1 Signed Report GLUBED 2019-02-22 18:40:00* Test Item Value Reference Range Comments GLUBED (test code=GLUBED) 134 mg/dL 74-106 Performed by certified wagon drill operator at [facility] [id number] 18:40:00* Test Item Value Reference Range Comments GLUBED (test code=GLUBED) 135 mg/dL 74-106 Performed by certified wagon drill operator at [facility] [id number] 15:00:00* Test Item Value Reference Range Comments GLUBED (test code=GLUBED) 141 mg/dL 74-106 Performed by certified wagon drill operator at [facility] [id number] 13:34:00* Test Item Value Reference Range Comments GLUBED (test code=GLUBED) 128 mg/dL 74-106 Performed by certified wagon drill operator at [facility] [id number] 13:30:00* Test Item Value Reference Range Comments GLUBED (test code=GLUBED) 133 mg/dL 74-106 Performed by certified wagon drill operator at [facility] - XR CHEST 1 [id number] 12:48:00 FAX: Jillian Granados [phone] [place]: B St: ADM FAX: Gwyn Reaves MD [phone] FAX: Trey Talavera MD [phone] FAX: Mari Crump Name: NANCY BOO [facility] : 1965 Age/S: 53/M [address] [facility] Unit #: [id number] Loc: V[address] [place] [address] Phys: Mari Vogel NP Acct: [id number] Dis Date: Status: ADM IN PHONE #: [phone] Exam D ate: 02/22/2019 1212 FAX #: [phone] Reason: S /P CHEST TUBE REMOVAL SHALLOW BREATHING EXAMS: CPT CODE: [id number] XR CHEST 1 V [id number] REASON FOR EXAM: S/P CHEST TUBE LUIZ JU SHALLOW BREATHING Exam Order Date: 02/22/2019 11:38 AM Ordering Eliza: Mari Vogel NP PROCEDURE: - XR C HEST 1 V COMPARISON: Frontal chest x-ray earlier today at 5:33 AM FINDINGS/ IMPRESSION: Interval removal of left-s ided chest tube. No pneumothorax is appreciated. Right IJ central line, post surgical changes of CABG, patchy opacities in the lung bases, and hardware in the cervical spine are unchanged from the p revious exam. Location: [facility] at 1248 Reported and sig [place] by: Agustin Sands MD CC: Jillian Hernandez MD; Gwyn Regalado MD; Trey Ybarra MD; Mari Vogel NP Technologist: Zeynep Lyles RT(R) Trnscrd Date/Time/By: 02/22/2019 (4116) : By: [email or web address] Orig Pr int D/T: S: 02/22/2019 (0331) PAGE 1 Signed Report [id number] 11:47:00* Test Item Value Reference Range Comments GLUBED (test code=GLUBED) 152 mg/dL 74-106 Performed by certified wagon drill operator at [facility] [id number] 11:36:00* Test Item Value Reference Range Comments GLUBED (test code=GLUBED) 134 mg/dL 74-106 Performed by certified wagon drill operator at [facility] [id number] 10:02:00* Test Item Value Reference Range Comments GLUBED (test code=GLUBED) 141 mg/dL 74-106 Performed by certified wagon drill operator at [facility] [id number] 09:05:00* Test Item Value Reference Range Comments GLUBED (test code=GLUBED) 139 mg/dL 74-106 Performed by certified wagon drill operator at [facility] [id number] 08:26:00* Test Item Value Reference Range Comments GLUBED (test code=GLUBED) 164 mg/dL 74-106 Performed by certified wagon drill operator at [facility] [id number] 08:23:00* Test Item Value Reference Range Comments GLUBED (test code=GLUBED) 63 mg/dL 74-106 Performed by certified wagon drill operator at [facility] [id number] 08:01:00* Test Item Value Reference Range Comments GLUBED (test code=GLUBED) 204 mg/dL 74-106 Performed by certified wagon drill operator at [facility] - XR CHEST 1 [id number] 07:16:00 FAX: Alejandro Valle [phone] [place]: B St: ADM FAX: Jillian Granados [phone] FAX: Gwyn Reaves MD [phone] FAX: Trey Talavera MD [phone] Name: NANCY BOO [facility] : 1965 Age/S: 53/M [address] [facility] Unit #: [id number] Loc: V.S [address] [place] [address] Phys: Alejandor Valle Acct: [id number] Dis Date: Status: ADM IN PHONE #: [phone] Exam D ate: 02/22/2019 0533 FAX #: [phone] Reason: u pdated pulm status EXAMS: CPT CODE: [id number] XR CHEST 1 V 12153 HISTORY: Coronary bypass. COMP ARISON: Previous day. Location: TH. Right [place] catheter has been removed. Left chest tube and right central line are unc hanged. Bibasal dependent changes without acute infiltrates, effusion or congestion. Cardiac silhouette is mildly enlarged. Cervical fusion in th e lower neck. IMPRESSION: Bibasal subsegmental atelectasis without acute infiltrates, effusion or congestion. at 0716 Reported and signed by: Iraj Desai M.D. CC: Alejandro Valle; Jillian Hernandez MD; Gwyn Hurst MD, Deepak MD Technologist: Cecilia Morales Trnscrd Date/Time/By: 02/22/2019 ( 0716) : By: [email or web address] Orig Print D/T: S: 02/22/2019 (0506) PAGE 1 Signed Report BASIC METABOLIC [id number] 04:14:00* Test Item Value Reference Range Comments SODIUM (test code=NA) 135 mmol/L 136-145 POTASSIUM (test code=K) 3.9 mmol/L 3.5-5.1 CHLORIDE (test code=CL) 101.0 mmol/L 98-107 CARBON DIOXIDE (test code=CO2) 30.0 mmol/L 21-32 ANION GAP (test code=GAP) 7.9 10-20 GLUCOSE (test code=GLU) 137 mg/dL 74-106 BLOOD UREA NITROGEN (test code=BUN) 8 mg/dL 7-18 GLOMERULAR FILTRATION RATE (test code=GFR) > 60 mL/min >=60 Estimated GFR by using Modified MDRD formula.Chronic kidney disease is defined as either kidney damageor GFR <60 mL/min/1.73 m2 for >3 months. CREATININE (test code=CREAT) 0.60 mg/dL 0.7-1.3 BUN/CREATININE RATIO (test code=BUN/CREA) 13.6 10-20 CALCIUM (test code=CA) 8.2 mg/dL 8.5-10.1 [id number] 04:14:00* Test Item Value Reference Range Comments PHOSPHORUS (test code=PHOS) 3.0 mg/dL 2.5-4.9 [id number] 04:14:00* Test Item Value Reference Range Comments MAGNESIUM (test code=MAG) 1.9 mg/dL 1.8-2.4 CALCIUM [id number] 04:14:00* Test Item Value Reference Range Comments CALCIUM IONIZED (test code=CHARLY) 1.22 mmol/L 1.12-1.32 BASIC METABOLIC [id number] 04:12:00* Test Item Value Reference Range Comments SODIUM (test code=NA) 135 mmol/L 136-145 POTASSIUM (test code=K) 3.9 mmol/L 3.5-5.1 CHLORIDE (test code=CL) 101.0 mmol/L 98-107 CARBON DIOXIDE (test code=CO2) 30.0 mmol/L 21-32 ANION GAP (test code=GAP) 7.9 10-20 GLUCOSE (test code=GLU) 137 mg/dL 74-106 BLOOD UREA NITROGEN (test code=BUN) 8 mg/dL 7-18 GLOMERULAR FILTRATION RATE (test code=GFR) > 60 mL/min >=60 Estimated GFR by using Modified MDRD formula.Chronic kidney disease is defined as either kidney damageor GFR <60 mL/min/1.73 m2 for >3 months. CREATININE (test code=CREAT) 0.60 mg/dL 0.7-1.3 BUN/CREATININE RATIO (test code=BUN/CREA) 13.6 10-20 CALCIUM (test code=CA) 8.2 mg/dL 8.5-10.1 [id number] 04:12:00* Test Item Value Reference Range Comments PHOSPHORUS (test code=PHOS) 3.0 mg/dL 2.5-4.9 [id number] 04:12:00* Test Item Value Reference Range Comments MAGNESIUM (test code=MAG) 1.9 mg/dL 1.8-2.4 CALCIUM [id number] 04:12:00* Test Item Value Reference Range Comments CALCIUM IONIZED (test code=CHARLY) mmol/L 1.12-1.32 [id number] 03:55:00* Test Item Value Reference Range Comments GLUBED (test code=GLUBED) 131 mg/dL 74-106 Performed by certified wagon drill operator at [facility] [id number] 03:55:00* Test Item Value Reference Range Comments GLUBED (test code=GLUBED) 135 mg/dL 74-106 Performed by certified wagon drill operator at [facility] [id number] 03:55:00* Test Item Value Reference Range Comments GLUBED (test code=GLUBED) 130 mg/dL 74-106 Performed by certified wagon drill operator at [facility] CBC W/AUTO [id number] 03:48:00* Test Item Value Reference Range Comments WHITE BLOOD CELL (test code=WBC) 13.8 K/mm3 4.5-12.5 RED BLOOD CELL (test code=RBC) 3.00 mill/mm3 4.0-5.8 HEMOGLOBIN (test code=HGB) 9.5 gram/dL 13.0-17.5 HEMATOCRIT (test code=HCT) 28.8 % 42.0-52.0 MEAN CELL VOLUME (test code=MCV) 96.0 fL 80-98 MEAN CELL HGB (test code=MCH) 31.7 picogram 27.0-33.0 MEAN CELL HGB CONCETRATION (test code=MCHC) 33.0 gram/dL 33.0-36.0 RED CELL DISTRIBUTION WIDTH (test code=RDW) 12.0 % 11.6-16.2 RED CELL DISTRIBUTION WIDTH SD (test code=RDW-SD) 41.9 fL 37.0-51.0 PLATELET COUNT (test code=PLT) 241 K/mm3 150-450 MEAN PLATELET VOLUME (test code=MPV) 10.1 fL 6.7-11.0 NEUTROPHIL % (test code=NT%) 74.3 % 39.0-69.0 IMMATURE GRANULOCYTE % (test code=IG%) 0.5 % 0.0-5.0 LYMPHOCYTE % (test code=LY%) 14.5 % 25.0-55.0 MONOCYTE % (test code=MO%) 10.3 % 0.0-10.0 EOSINOPHIL % (test code=EO%) 0.1 % 0.0-5.0 BASOPHIL % (test code=BA%) 0.3 % 0.0-1.0 NUCLEATED RBC % (test code=NRBC%) 0.0 % 0-0 NEUTROPHIL # (test code=NT#) 10.27 K/mm3 1.8-7.7 IMMATURE GRANULOCYTE # (test code=IG#) 0.07 x10 3/uL 0-0.03 LYMPHOCYTE # (test code=LY#) 2.00 K/mm3 1.0-5.0 MONOCYTE # (test code=MO#) 1.43 K/mm3 0-0.8 EOSINOPHIL # (test code=EO#) 0.01 K/mm3 0.0-0.5 BASOPHIL # (test code=BA#) 0.04 K/mm3 0.0-0.2 NUCLEATED RBC # (test code=NRBC#) 0.00 K/mm3 0.0-0.1 [id number] 20:38:00* Test Item Value Reference Range Comments GLUBED (test code=GLUBED) 139 mg/dL 74-106 Performed by certified wagon drill operator at [facility] [id number] 18:23:00* Test Item Value Reference Range Comments GLUBED (test code=GLUBED) 102 mg/dL 74-106 Performed by certified wagon drill operator at [facility] [id number] 15:31:00* Test Item Value Reference Range Comments GLUBED (test code=GLUBED) 126 mg/dL 74-106 Performed by certified wagon drill operator at [facility] [id number] 14:42:00* Test Item Value Reference Range Comments MAGNESIUM (test code=MAG) 1.8 mg/dL 1.8-2.4 [id number] 12:23:00* Test Item Value Reference Range Comments GLUBED (test code=GLUBED) 139 mg/dL 74-106 Performed by certified wagon drill operator at [facility] [id number] 12:23:00* Test Item Value Reference Range Comments GLUBED (test code=GLUBED) 132 mg/dL 74-106 Performed by certified wagon drill operator at [facility] COMPREHENSIVE METABOLIC [id number] 12:19:00* Test Item Value Reference Range Comments SODIUM (test code=NA) 137 mmol/L 136-145 POTASSIUM (test code=K) 3.9 mmol/L 3.5-5.1 CHLORIDE (test code=CL) 104.0 mmol/L 98-107 CARBON DIOXIDE (test code=CO2) 31.0 mmol/L 21-32 ANION GAP (test code=GAP) 5.9 10-20 GLUCOSE (test code=GLU) 133 mg/dL 74-106 BLOOD UREA NITROGEN (test code=BUN) 11 mg/dL 7-18 GLOMERULAR FILTRATION RATE (test code=GFR) > 60 mL/min >=60 Estimated GFR by using Modified MDRD formula.Chronic kidney disease is defined as either kidney damageor GFR <60 mL/min/1.73 m2 for >3 months. CREATININE (test code=CREAT) 0.60 mg/dL 0.7-1.3 BUN/CREATININE RATIO (test code=BUN/CREA) 17.7 10-20 TOTAL PROTEIN (test code=PROT) 5.8 gram/dL 6.4-8.2 ALBUMIN (test code=ALB) 2.8 g/dL 3.4-5.0 GLOBULIN (test code=GLOB) 3.0 gram/dL 2.7-4.2 ALBUMIN/GLOBULIN RATIO (test code=A/G) 0.9 0.75-1.50 CALCIUM (test code=CA) 8.5 mg/dL 8.5-10.1 BILIRUBIN TOTAL (test code=BILT) 0.60 mg/dL 0.0-1.0 SGOT/AST (test code=AST) 65 IUnit/L 15-37 SGPT/ALT (test code=ALT) 53 IUnit/L 12-78 ALKALINE PHOSPHATASE TOTAL (test code=ALKP) 87 IUnit/L 45-117 Note change in reference range due to change in reagent. COMPREHENSIVE METABOLIC [id number] 12:07:00* Test Item Value Reference Range Comments SODIUM (test code=NA) 137 mmol/L 136-145 POTASSIUM (test code=K) 3.9 mmol/L 3.5-5.1 CHLORIDE (test code=CL) 104.0 mmol/L 98-107 CARBON DIOXIDE (test code=CO2) mmol/L 21-32 ANION GAP (test code=GAP) 10-20 GLUCOSE (test code=GLU) mg/dL 74-106 BLOOD UREA NITROGEN (test code=BUN) mg/dL 7-18 GLOMERULAR FILTRATION RATE (test code=GFR) mL/min >=60 CREATININE (test code=CREAT) mg/dL 0.7-1.3 BUN/CREATININE RATIO (test code=BUN/CREA) 10-20 TOTAL PROTEIN (test code=PROT) gram/dL 6.4-8.2 ALBUMIN (test code=ALB) g/dL 3.4-5.0 GLOBULIN (test code=GLOB) gram/dL 2.7-4.2 ALBUMIN/GLOBULIN RATIO (test code=A/G) 0.75-1.50 CALCIUM (test code=CA) mg/dL 8.5-10.1 BILIRUBIN TOTAL (test code=BILT) mg/dL 0.0-1.0 SGOT/AST (test code=AST) IUnit/L 15-37 SGPT/ALT (test code=ALT) IUnit/L 12-78 ALKALINE PHOSPHATASE TOTAL (test code=ALKP) IUnit/L 45-117 - XR CHEST 1 [id number] 07:11:00 FAX: Christine Hart MD [phone] [place]: B St: ADM FAX: Gwyn Reaves MD [phone] FAX: Trey Talavera MD [phone] FAX: Donny Couch NP Name: NANCY BOO [facility] : 1965 Age/S: 53/M [address] [facility] Unit #: [id number] Loc: V.S [address] [place] [address] Phys: Donny Couch NP Acct: [id number] Dis Date: Status: ADM IN PHONE #: [phone] Exam D ate: 02/21/2019 0533 FAX #: [phone] Reason: P ost CAB EXAMS: CPT CODE: [id number] XR CHEST 1 V 65229 HISTORY: Post coronary bypass. COMPARISON: Previous day. Location: TH. Left chest tube is in good position along with the right [place] catheter in the [facility] central line. Patient has been extubated. No pneumothorax. Dependen t changes. No infiltrates or congestion. Cardiomegaly. I MPRESSION: No acute infiltrates, effusion or congestion. Depe ndent changes. Electronically Signed by Eliza Desai on 019 at 0711 Reported and signed by: Iraj Desai M.D. CC: Christine Hart MD; Gwyn Hurst MD; Reginald Ybarra MD; Donny Couch NP Technologist: BRODY ANDERSON JR; Cecilia Quintana Trnscrd Da te/Time/By: 02/21/2019 (0711) : By: [email or web address] Orig Print D/T: S: 02/21 (0714) PAGE 1 Signed Report [id number] 07:06:00* Test Item Value Reference Range Comments GLUBED (test code=GLUBED) 121 mg/dL 74-106 Performed by certified wagon drill operator at [facility] [id number] 07:06:00* Test Item Value Reference Range Comments GLUBED (test code=GLUBED) 130 mg/dL 74-106 Performed by certified wagon drill operator at [facility] BASIC METABOLIC [id number] 05:55:00* Test Item Value Reference Range Comments SODIUM (test code=NA) 138 mmol/L 136-145 POTASSIUM (test code=K) 4.0 mmol/L 3.5-5.1 CHLORIDE (test code=CL) 106.0 mmol/L 98-107 CARBON DIOXIDE (test code=CO2) 26.0 mmol/L 21-32 ANION GAP (test code=GAP) 10.0 10-20 GLUCOSE (test code=GLU) 138 mg/dL 74-106 BLOOD UREA NITROGEN (test code=BUN) 11 mg/dL 7-18 GLOMERULAR FILTRATION RATE (test code=GFR) > 60 mL/min >=60 Estimated GFR by using Modified MDRD formula.Chronic kidney disease is defined as either kidney damageor GFR <60 mL/min/1.73 m2 for >3 months. CREATININE (test code=CREAT) 0.60 mg/dL 0.7-1.3 BUN/CREATININE RATIO (test code=BUN/CREA) 18.5 10-20 CALCIUM (test code=CA) 8.4 mg/dL 8.5-10.1 [id number] 05:55:00* Test Item Value Reference Range Comments PHOSPHORUS (test code=PHOS) 4.0 mg/dL 2.5-4.9 [id number] 05:55:00* Test Item Value Reference Range Comments MAGNESIUM (test code=MAG) 2.1 mg/dL 1.8-2.4 CALCIUM [id number] 05:55:00* Test Item Value Reference Range Comments CALCIUM IONIZED (test code=CHARLY) 1.20 mmol/L 1.12-1.32 BASIC METABOLIC [id number] 05:46:00* Test Item Value Reference Range Comments SODIUM (test code=NA) 138 mmol/L 136-145 POTASSIUM (test code=K) 4.0 mmol/L 3.5-5.1 CHLORIDE (test code=CL) 106.0 mmol/L 98-107 CARBON DIOXIDE (test code=CO2) 26.0 mmol/L 21-32 ANION GAP (test code=GAP) 10.0 10-20 GLUCOSE (test code=GLU) 138 mg/dL 74-106 BLOOD UREA NITROGEN (test code=BUN) 11 mg/dL 7-18 GLOMERULAR FILTRATION RATE (test code=GFR) > 60 mL/min >=60 Estimated GFR by using Modified MDRD formula.Chronic kidney disease is defined as either kidney damageor GFR <60 mL/min/1.73 m2 for >3 months. CREATININE (test code=CREAT) 0.60 mg/dL 0.7-1.3 BUN/CREATININE RATIO (test code=BUN/CREA) 18.5 10-20 CALCIUM (test code=CA) 8.4 mg/dL 8.5-10.1 [id number] 05:46:00* Test Item Value Reference Range Comments PHOSPHORUS (test code=PHOS) 4.0 mg/dL 2.5-4.9 [id number] 05:46:00* Test Item Value Reference Range Comments MAGNESIUM (test code=MAG) 2.1 mg/dL 1.8-2.4 CALCIUM [id number] 05:46:00* Test Item Value Reference Range Comments CALCIUM IONIZED (test code=CHARLY) mmol/L 1.12-1.32 BASIC METABOLIC [id number] 05:30:00* Test Item Value Reference Range Comments SODIUM (test code=NA) 138 mmol/L 136-145 POTASSIUM (test code=K) 4.0 mmol/L 3.5-5.1 CHLORIDE (test code=CL) 106.0 mmol/L 98-107 CARBON DIOXIDE (test code=CO2) mmol/L 21-32 ANION GAP (test code=GAP) 10-20 GLUCOSE (test code=GLU) mg/dL 74-106 BLOOD UREA NITROGEN (test code=BUN) mg/dL 7-18 GLOMERULAR FILTRATION RATE (test code=GFR) mL/min >=60 CREATININE (test code=CREAT) mg/dL 0.7-1.3 BUN/CREATININE RATIO (test code=BUN/CREA) 10-20 CALCIUM (test code=CA) mg/dL 8.5-10.1 [id number] 05:30:00* Test Item Value Reference Range Comments PHOSPHORUS (test code=PHOS) mg/dL 2.5-4.9 [id number] 05:30:00* Test Item Value Reference Range Comments MAGNESIUM (test code=MAG) mg/dL 1.8-2.4 CALCIUM [id number] 05:30:00* Test Item Value Reference Range Comments CALCIUM IONIZED (test code=CHARLY) mmol/L 1.12-1.32 PROTHROMBIN [id number] 05:26:00* Test Item Value Reference Range Comments PROTHROMBIN TIME PATIENT (test code=PTP) 13.4 seconds 9.0-14.0 INTERNATIONAL NORMAL RATIO (test code=INR) 1.1 0.8-1.2 The therapeutic range for oral anticoagulant therapy formost indications is an international normalized ratio (INR)of between 2.0 and 3.0. The recommended therapeutic INRrange for various clinical situations is listed below: Clinical Situation INR range Pulmonary e mbolism treatment (2.0-3.0)Venous thrombosis treatmentVenous thrombosis prophylaxis (high risk surgery)Prevention of systemic embolism from: Acute myocardial infarction Valvular heart disease Atrial fibrillation Mechanical prosthetic heart valves (2.5-3.5) IS PATIENT ON ANTICOAGULANTS? NTHROMBOPLASTIN TIME [id number] 05:26:00* Test Item Value Reference Range Comments THROMBOPLASTIN TIME PARTIAL (test code=PTT) 33.7 seconds 25.0-36.5 IS PATIENT ON ANTICOAGULANTS? NCBC W/AUTO [id number] 05:19:00* Test Item Value Reference Range Comments WHITE BLOOD CELL (test code=WBC) 13.9 K/mm3 4.5-12.5 RED BLOOD CELL (test code=RBC) 3.06 mill/mm3 4.0-5.8 HEMOGLOBIN (test code=HGB) 9.7 gram/dL 13.0-17.5 HEMATOCRIT (test code=HCT) 29.4 % 42.0-52.0 MEAN CELL VOLUME (test code=MCV) 96.1 fL 80-98 MEAN CELL HGB (test code=MCH) 31.7 picogram 27.0-33.0 MEAN CELL HGB CONCETRATION (test code=MCHC) 33.0 gram/dL 33.0-36.0 RED CELL DISTRIBUTION WIDTH (test code=RDW) 12.2 % 11.6-16.2 RED CELL DISTRIBUTION WIDTH SD (test code=RDW-SD) 42.6 fL 37.0-51.0 PLATELET COUNT (test code=PLT) 223 K/mm3 150-450 MEAN PLATELET VOLUME (test code=MPV) 10.1 fL 6.7-11.0 NEUTROPHIL % (test code=NT%) 77.3 % 39.0-69.0 IMMATURE GRANULOCYTE % (test code=IG%) 0.6 % 0.0-5.0 LYMPHOCYTE % (test code=LY%) 11.4 % 25.0-55.0 MONOCYTE % (test code=MO%) 10.6 % 0.0-10.0 EOSINOPHIL % (test code=EO%) 0.0 % 0.0-5.0 BASOPHIL % (test code=BA%) 0.1 % 0.0-1.0 NUCLEATED RBC % (test code=NRBC%) 0.0 % 0-0 NEUTROPHIL # (test code=NT#) 10.73 K/mm3 1.8-7.7 IMMATURE GRANULOCYTE # (test code=IG#) 0.09 x10 3/uL 0-0.03 LYMPHOCYTE # (test code=LY#) 1.59 K/mm3 1.0-5.0 MONOCYTE # (test code=MO#) 1.48 K/mm3 0-0.8 EOSINOPHIL # (test code=EO#) 0.00 K/mm3 0.0-0.5 BASOPHIL # (test code=BA#) 0.02 K/mm3 0.0-0.2 NUCLEATED RBC # (test code=NRBC#) 0.00 K/mm3 0.0-0.1 MANUAL DIFF REQUIRED (test code=MDIFF) NO [id number] 05:07:00* Test Item Value Reference Range Comments GLUBED (test code=GLUBED) 135 mg/dL 74-106 Performed by certified wagon drill operator at [facility] [id number] 04:49:00* Test Item Value Reference Range Comments GLUBED (test code=GLUBED) 142 mg/dL 74-106 Performed by certified wagon drill operator at [facility] [id number] 04:49:00* Test Item Value Reference Range Comments GLUBED (test code=GLUBED) 153 mg/dL 74-106 Performed by certified wagon drill operator at [facility] [id number] 04:49:00* Test Item Value Reference Range Comments GLUBED (test code=GLUBED) 149 mg/dL 74-106 Performed by certified wagon drill operator at [facility] [id number] 04:49:00* Test Item Value Reference Range Comments GLUBED (test code=GLUBED) 161 mg/dL 74-106 Performed by certified wagon drill operator at [facility] [id number] 04:49:00* Test Item Value Reference Range Comments GLUBED (test code=GLUBED) 157 mg/dL 74-106 Performed by certified wagon drill operator at [facility] [id number] 04:49:00* Test Item Value Reference Range Comments GLUBED (test code=GLUBED) 161 mg/dL 74-106 Performed by certified wagon drill operator at [facility] BASIC METABOLIC [id number] 01:22:00* Test Item Value Reference Range Comments SODIUM (test code=NA) 140 mmol/L 136-145 POTASSIUM (test code=K) 4.4 mmol/L 3.5-5.1 CHLORIDE (test code=CL) 108.0 mmol/L 98-107 CARBON DIOXIDE (test code=CO2) 26.0 mmol/L 21-32 ANION GAP (test code=GAP) 10.4 10-20 GLUCOSE (test code=GLU) 167 mg/dL 74-106 BLOOD UREA NITROGEN (test code=BUN) 11 mg/dL 7-18 GLOMERULAR FILTRATION RATE (test code=GFR) > 60 mL/min >=60 Estimated GFR by using Modified MDRD formula.Chronic kidney disease is defined as either kidney damageor GFR <60 mL/min/1.73 m2 for >3 months. CREATININE (test code=CREAT) 0.70 mg/dL 0.7-1.3 BUN/CREATININE RATIO (test code=BUN/CREA) 16.2 10-20 CALCIUM (test code=CA) 7.8 mg/dL 8.5-10.1 [id number] 01:22:00* Test Item Value Reference Range Comments PHOSPHORUS (test code=PHOS) 3.8 mg/dL 2.5-4.9 [id number] 01:22:00* Test Item Value Reference Range Comments MAGNESIUM (test code=MAG) 2.2 mg/dL 1.8-2.4 CALCIUM [id number] 01:22:00* Test Item Value Reference Range Comments CALCIUM IONIZED (test code=CHARLY) 1.18 mmol/L 1.12-1.32 BASIC METABOLIC [id number] 01:18:00* Test Item Value Reference Range Comments SODIUM (test code=NA) 140 mmol/L 136-145 POTASSIUM (test code=K) 4.4 mmol/L 3.5-5.1 CHLORIDE (test code=CL) 108.0 mmol/L 98-107 CARBON DIOXIDE (test code=CO2) 26.0 mmol/L 21-32 ANION GAP (test code=GAP) 10.4 10-20 GLUCOSE (test code=GLU) 167 mg/dL 74-106 BLOOD UREA NITROGEN (test code=BUN) 11 mg/dL 7-18 GLOMERULAR FILTRATION RATE (test code=GFR) > 60 mL/min >=60 Estimated GFR by using Modified MDRD formula.Chronic kidney disease is defined as either kidney damageor GFR <60 mL/min/1.73 m2 for >3 months. CREATININE (test code=CREAT) 0.70 mg/dL 0.7-1.3 BUN/CREATININE RATIO (test code=BUN/CREA) 16.2 10-20 CALCIUM (test code=CA) 7.8 mg/dL 8.5-10.1 [id number] 01:18:00* Test Item Value Reference Range Comments PHOSPHORUS (test code=PHOS) 3.8 mg/dL 2.5-4.9 [id number] 01:18:00* Test Item Value Reference Range Comments MAGNESIUM (test code=MAG) 2.2 mg/dL 1.8-2.4 CALCIUM [id number] 01:18:00* Test Item Value Reference Range Comments CALCIUM IONIZED (test code=CHARLY) mmol/L 1.12-1.32 CBC W/AUTO [id number] 00:47:00* Test Item Value Reference Range Comments WHITE BLOOD CELL (test code=WBC) 16.5 K/mm3 4.5-12.5 RED BLOOD CELL (test code=RBC) 3.14 mill/mm3 4.0-5.8 HEMOGLOBIN (test code=HGB) 9.9 gram/dL 13.0-17.5 HEMATOCRIT (test code=HCT) 30.2 % 42.0-52.0 MEAN CELL VOLUME (test code=MCV) 96.2 fL 80-98 MEAN CELL HGB (test code=MCH) 31.5 picogram 27.0-33.0 MEAN CELL HGB CONCETRATION (test code=MCHC) 32.8 gram/dL 33.0-36.0 RED CELL DISTRIBUTION WIDTH (test code=RDW) 12.1 % 11.6-16.2 RED CELL DISTRIBUTION WIDTH SD (test code=RDW-SD) 42.6 fL 37.0-51.0 PLATELET COUNT (test code=PLT) 246 K/mm3 150-450 MEAN PLATELET VOLUME (test code=MPV) 10.0 fL 6.7-11.0 NEUTROPHIL % (test code=NT%) 87.2 % 39.0-69.0 IMMATURE GRANULOCYTE % (test code=IG%) 0.4 % 0.0-5.0 LYMPHOCYTE % (test code=LY%) 4.4 % 25.0-55.0 MONOCYTE % (test code=MO%) 7.9 % 0.0-10.0 EOSINOPHIL % (test code=EO%) 0.0 % 0.0-5.0 BASOPHIL % (test code=BA%) 0.1 % 0.0-1.0 NUCLEATED RBC % (test code=NRBC%) 0.0 % 0-0 NEUTROPHIL # (test code=NT#) 14.39 K/mm3 1.8-7.7 IMMATURE GRANULOCYTE # (test code=IG#) 0.07 x10 3/uL 0-0.03 LYMPHOCYTE # (test code=LY#) 0.73 K/mm3 1.0-5.0 MONOCYTE # (test code=MO#) 1.31 K/mm3 0-0.8 EOSINOPHIL # (test code=EO#) 0.00 K/mm3 0.0-0.5 BASOPHIL # (test code=BA#) 0.02 K/mm3 0.0-0.2 NUCLEATED RBC # (test code=NRBC#) 0.00 K/mm3 0.0-0.1 MANUAL DIFF REQUIRED (test code=MDIFF) NO CPK-MB [id number] 23:11:00* Test Item Value Reference Range Comments CREATINE KINASE (CK) (test code=CK) 1004 IUnit/L 26-208 CKMB (test code=CKMBT) 15.0 ng/mL 0-6.0 RELATIVE % INDEX (test code=REL%) 1.49 % 0.00-2.50 "If the total CK is elevated, the CKMB Fraction must beinterpreted as a Relative % Index, Normal is less than 2.5%"NOTE: Relative % Index is not valid with a normal total CK. [id number] 23:11:00* Test Item Value Reference Range Comments TROPONIN-I (test code=TROPI) 2.680 ng/mL 0-0.045 RESULT VERIFIED BY REPEAT ANALYSIS [id number] 22:49:00* Test Item Value Reference Range Comments GLUBED (test code=GLUBED) 172 mg/dL 74-106 Performed by certified wagon drill operator at [facility] [id number] 22:49:00* Test Item Value Reference Range Comments GLUBED (test code=GLUBED) 168 mg/dL 74-106 Performed by certified wagon drill operator at [facility] [id number] 22:49:00* Test Item Value Reference Range Comments GLUBED (test code=GLUBED) 199 mg/dL 74-106 Performed by certified wagon drill operator at [facility] [id number] 22:49:00* Test Item Value Reference Range Comments GLUBED (test code=GLUBED) 193 mg/dL 74-106 Performed by certified wagon drill operator at [facility] [id number] 22:49:00* Test Item Value Reference Range Comments GLUBED (test code=GLUBED) 141 mg/dL 74-106 Performed by certified wagon drill operator at [facility] [id number] 22:49:00* Test Item Value Reference Range Comments GLUBED (test code=GLUBED) 157 mg/dL 74-106 Performed by certified wagon drill operator at [facility] BASIC METABOLIC [id number] 21:25:00* Test Item Value Reference Range Comments SODIUM (test code=NA) 140 mmol/L 136-145 RESULT VERIFIED BY REPEAT ANALYSIS POTASSIUM (test code=K) 4.4 mmol/L 3.5-5.1 CHLORIDE (test code=CL) 107.0 mmol/L 98-107 CARBON DIOXIDE (test code=CO2) 25.0 mmol/L 21-32 ANION GAP (test code=GAP) 12.4 10-20 GLUCOSE (test code=GLU) 191 mg/dL 74-106 BLOOD UREA NITROGEN (test code=BUN) 10 mg/dL 7-18 GLOMERULAR FILTRATION RATE (test code=GFR) > 60 mL/min >=60 Estimated GFR by using Modified MDRD formula.Chronic kidney disease is defined as either kidney damageor GFR <60 mL/min/1.73 m2 for >3 months. CREATININE (test code=CREAT) 0.80 mg/dL 0.7-1.3 BUN/CREATININE RATIO (test code=BUN/CREA) 12.6 10-20 CALCIUM (test code=CA) 8.1 mg/dL 8.5-10.1 [id number] 21:25:00* Test Item Value Reference Range Comments PHOSPHORUS (test code=PHOS) 3.2 mg/dL 2.5-4.9 [id number] 21:25:00* Test Item Value Reference Range Comments MAGNESIUM (test code=MAG) 2.3 mg/dL 1.8-2.4 CALCIUM [id number] 21:25:00* Test Item Value Reference Range Comments CALCIUM IONIZED (test code=CHARLY) 1.22 mmol/L 1.12-1.32 BASIC METABOLIC [id number] 21:24:00* Test Item Value Reference Range Comments SODIUM (test code=NA) 140 mmol/L 136-145 RESULT VERIFIED BY REPEAT ANALYSIS POTASSIUM (test code=K) 4.4 mmol/L 3.5-5.1 CHLORIDE (test code=CL) 107.0 mmol/L 98-107 CARBON DIOXIDE (test code=CO2) 25.0 mmol/L 21-32 ANION GAP (test code=GAP) 12.4 10-20 GLUCOSE (test code=GLU) 191 mg/dL 74-106 BLOOD UREA NITROGEN (test code=BUN) 10 mg/dL 7-18 GLOMERULAR FILTRATION RATE (test code=GFR) > 60 mL/min >=60 Estimated GFR by using Modified MDRD formula.Chronic kidney disease is defined as either kidney damageor GFR <60 mL/min/1.73 m2 for >3 months. CREATININE (test code=CREAT) 0.80 mg/dL 0.7-1.3 BUN/CREATININE RATIO (test code=BUN/CREA) 12.6 10-20 CALCIUM (test code=CA) 8.1 mg/dL 8.5-10.1 [id number] 21:24:00* Test Item Value Reference Range Comments PHOSPHORUS (test code=PHOS) 3.2 mg/dL 2.5-4.9 [id number] 21:24:00* Test Item Value Reference Range Comments MAGNESIUM (test code=MAG) 2.3 mg/dL 1.8-2.4 CALCIUM [id number] 21:24:00* Test Item Value Reference Range Comments CALCIUM IONIZED (test code=CHARLY) mmol/L 1.12-1.32 CBC W/O [id number] 21:01:00* Test Item Value Reference Range Comments WHITE BLOOD CELL (test code=WBC) 16.4 K/mm3 4.5-12.5 RED BLOOD CELL (test code=RBC) 3.21 mill/mm3 4.0-5.8 HEMOGLOBIN (test code=HGB) 10.2 gram/dL 13.0-17.5 HEMATOCRIT (test code=HCT) 30.9 % 42.0-52.0 MEAN CELL VOLUME (test code=MCV) 96.3 fL 80-98 MEAN CELL HGB (test code=MCH) 31.8 picogram 27.0-33.0 MEAN CELL HGB CONCETRATION (test code=MCHC) 33.0 gram/dL 33.0-36.0 RED CELL DISTRIBUTION WIDTH (test code=RDW) 12.1 % 11.6-16.2 PLATELET COUNT (test code=PLT) 258 K/mm3 150-450 MEAN PLATELET VOLUME (test code=MPV) 10.0 fL 6.7-11.0 ARTERIAL BLOOD [id number] 17:32:00* Test Item Value Reference Range Comments ARTERIAL BLOOD GAS PH (test code=PHA) 7.38 7.35-7.45 ARTERIAL BLOOD GAS PCO2 (test code=PCO2A) 35.7 mm Hg 35-45 ARTERIAL BLOOD GAS PO2 (test code=PO2A) 137.9 mmHg 80-100 BICARBONATE TOTAL HCO3 (test code=HCO3) 20.4 mmol/L 23.0-27.0 BASE EXCESS (test code=JEAN-CLAUDE) -4.3 mmol/L -3.0-5.0 Results called to and read back by Dr reis 17:32 - 02/20/2019; by [id number] ABG O2 SATURATION (test code=SATA) 97.9 % 90.0-98.0 ABG TYPE (test code=TYPEA) Arterial FIO2 (test code=FIO2A) 45.0 ABG VENT MODE (test code=MODEA) CPAP ABG PEEP (test code=PEEPA) 5.0 cmH2O ABG PRESSURE SUPPORT (test code=PSABG) 8 cmH2O ABG SITE (test code=SITEA) ARTERIAL LINE MODIFIED ALLENS (test code=MODALL) Yes CHECK PERFORMED HEMATOCRIT (test code=HCT/ABG) 29 % 42-52 TOTAL HGB (test code=THB) 9.9 gram/dL 13.0-17.5 HGB O2 SAT (test code=HBOSAT) 96.8 % 94.00-98.00 CARBOXYHEMOGLOBIN (test code=HOHGBT) 0.3 %totalHg 0.5-1.5 Results called to and read back by Dr reis 17:32 - 02/20/2019; by [id number] METHEMOGLOBIN (test code=METHGB) 0.8 % 0.0-1.50 O2 CONTENT (test code=O2CT) 13.8 % vol 18.0-22.0 BASIC METABOLIC [id number] 17:06:00* Test Item Value Reference Range Comments SODIUM (test code=NA) 146 mmol/L 136-145 POTASSIUM (test code=K) 4.3 mmol/L 3.5-5.1 CHLORIDE (test code=CL) 113.0 mmol/L 98-107 CARBON DIOXIDE (test code=CO2) 25.0 mmol/L 21-32 ANION GAP (test code=GAP) 12.3 10-20 GLUCOSE (test code=GLU) 168 mg/dL 74-106 BLOOD UREA NITROGEN (test code=BUN) 10 mg/dL 7-18 GLOMERULAR FILTRATION RATE (test code=GFR) > 60 mL/min >=60 Estimated GFR by using Modified MDRD formula.Chronic kidney disease is defined as either kidney damageor GFR <60 mL/min/1.73 m2 for >3 months. CREATININE (test code=CREAT) 0.80 mg/dL 0.7-1.3 BUN/CREATININE RATIO (test code=BUN/CREA) 13.3 10-20 CALCIUM (test code=CA) 7.6 mg/dL 8.5-10.1 [id number] 17:06:00* Test Item Value Reference Range Comments PHOSPHORUS (test code=PHOS) 3.8 mg/dL 2.5-4.9 [id number] 17:06:00* Test Item Value Reference Range Comments MAGNESIUM (test code=MAG) 1.8 mg/dL 1.8-2.4 CALCIUM [id number] 17:06:00* Test Item Value Reference Range Comments CALCIUM IONIZED (test code=CHARLY) 1.08 mmol/L 1.12-1.32 BASIC METABOLIC [id number] 17:05:00* Test Item Value Reference Range Comments SODIUM (test code=NA) 146 mmol/L 136-145 POTASSIUM (test code=K) 4.3 mmol/L 3.5-5.1 CHLORIDE (test code=CL) 113.0 mmol/L 98-107 CARBON DIOXIDE (test code=CO2) 25.0 mmol/L 21-32 ANION GAP (test code=GAP) 12.3 10-20 GLUCOSE (test code=GLU) 168 mg/dL 74-106 BLOOD UREA NITROGEN (test code=BUN) 10 mg/dL 7-18 GLOMERULAR FILTRATION RATE (test code=GFR) > 60 mL/min >=60 Estimated GFR by using Modified MDRD formula.Chronic kidney disease is defined as either kidney damageor GFR <60 mL/min/1.73 m2 for >3 months. CREATININE (test code=CREAT) 0.80 mg/dL 0.7-1.3 BUN/CREATININE RATIO (test code=BUN/CREA) 13.3 10-20 CALCIUM (test code=CA) 7.6 mg/dL 8.5-10.1 [id number] 17:05:00* Test Item Value Reference Range Comments PHOSPHORUS (test code=PHOS) 3.8 mg/dL 2.5-4.9 [id number] 17:05:00* Test Item Value Reference Range Comments MAGNESIUM (test code=MAG) 1.8 mg/dL 1.8-2.4 CALCIUM [id number] 17:05:00* Test Item Value Reference Range Comments CALCIUM IONIZED (test code=CHARLY) mmol/L 1.12-1.32 BASIC METABOLIC [id number] 17:04:00* Test Item Value Reference Range Comments SODIUM (test code=NA) 146 mmol/L 136-145 POTASSIUM (test code=K) 4.3 mmol/L 3.5-5.1 CHLORIDE (test code=CL) 113.0 mmol/L 98-107 CARBON DIOXIDE (test code=CO2) mmol/L 21-32 ANION GAP (test code=GAP) 10-20 GLUCOSE (test code=GLU) mg/dL 74-106 BLOOD UREA NITROGEN (test code=BUN) mg/dL 7-18 GLOMERULAR FILTRATION RATE (test code=GFR) mL/min >=60 CREATININE (test code=CREAT) mg/dL 0.7-1.3 BUN/CREATININE RATIO (test code=BUN/CREA) 10-20 CALCIUM (test code=CA) mg/dL 8.5-10.1 [id number] 17:04:00* Test Item Value Reference Range Comments PHOSPHORUS (test code=PHOS) mg/dL 2.5-4.9 [id number] 17:04:00* Test Item Value Reference Range Comments MAGNESIUM (test code=MAG) mg/dL 1.8-2.4 CALCIUM [id number] 17:04:00* Test Item Value Reference Range Comments CALCIUM IONIZED (test code=CHARLY) mmol/L 1.12-1.32 CPK-MB [id number] 16:57:00* Test Item Value Reference Range Comments CREATINE KINASE (CK) (test code=CK) 643 IUnit/L 26-208 CKMB (test code=CKMBT) 13.3 ng/mL 0-6.0 RELATIVE % INDEX (test code=REL%) 2.07 % 0.00-2.50 "If the total CK is elevated, the CKMB Fraction must beinterpreted as a Relative % Index, Normal is less than 2.5%"NOTE: Relative % Index is not valid with a normal total CK. [id number] 16:57:00* Test Item Value Reference Range Comments TROPONIN-I (test code=TROPI) 2.850 ng/mL 0-0.045 Results called to [id number] by ADALPA 02/20/19 1654Critical results verified and read back by Nurse? Y PROTHROMBIN [id number] 16:49:00* Test Item Value Reference Range Comments PROTHROMBIN TIME PATIENT (test code=PTP) 15.3 seconds 9.0-14.0 INTERNATIONAL NORMAL RATIO (test code=INR) 1.3 0.8-1.2 The therapeutic range for oral anticoagulant therapy formost indications is an international normalized ratio (INR)of between 2.0 and 3.0. The recommended therapeutic INRrange for various clinical situations is listed below: Clinical Situation INR range Pulmonary e mbolism treatment (2.0-3.0)Venous thrombosis treatmentVenous thrombosis prophylaxis (high risk surgery)Prevention of systemic embolism from: Acute myocardial infarction Valvular heart disease Atrial fibrillation Mechanical prosthetic heart valves (2.5-3.5) IS PATIENT ON ANTICOAGULANTS? NTHROMBOPLASTIN TIME [id number] 16:49:00* Test Item Value Reference Range Comments THROMBOPLASTIN TIME PARTIAL (test code=PTT) 31.8 seconds 25.0-36.5 IS PATIENT ON ANTICOAGULANTS? NCBC W/O [id number] 16:36:00* Test Item Value Reference Range Comments WHITE BLOOD CELL (test code=WBC) 22.5 K/mm3 4.5-12.5 RED BLOOD CELL (test code=RBC) 3.24 mill/mm3 4.0-5.8 HEMOGLOBIN (test code=HGB) 10.3 gram/dL 13.0-17.5 HEMATOCRIT (test code=HCT) 30.8 % 42.0-52.0 MEAN CELL VOLUME (test code=MCV) 95.1 fL 80-98 MEAN CELL HGB (test code=MCH) 31.8 picogram 27.0-33.0 MEAN CELL HGB CONCETRATION (test code=MCHC) 33.4 gram/dL 33.0-36.0 RED CELL DISTRIBUTION WIDTH (test code=RDW) 11.9 % 11.6-16.2 PLATELET COUNT (test code=PLT) 244 K/mm3 150-450 MEAN PLATELET VOLUME (test code=MPV) 10.5 fL 6.7-11.0 - XR CHEST 1 [id number] 16:36:00 FAX: Gwyn Reaves MD [phone] [place]: St: ADM FAX: Trey Talavera MD [phone] FAX: Donny Couch BILINGUAL RESEARCH INTERVIEWER Name: NANCY BOO [facility] : 1965 Age/S: 53/M [address] [facility] Unit #: [id number] Loc: V.S22 [place] [address] Phys: Donny Couch NP Acct: [id number] Dis Date: Status: ADM IN ONE #: [phone] Exam Date: 02/20/2019 1635 FAX #: [phone] Reason: Post CAB EXAMS: CPT CODE: [id number] XR CHEST 1 V 47225 REASON FOR EXA M: Status post CABG Exam order date: 02/20/2019 12:26 PM Procedure: - XR CHEST 1 V Attending M.D.:Gwyn Hurst MD Location:[facility] FINDINGS: Single portable view of the chest o btained at 4:30 PM. The patient is intubated with the tip of the ET tube a bout 2 cm above the jacqui. Right IJ central line tip is in the SVC. Rig ht IJ [place] catheter tip is in the main pulmonary artery. Pulmonary va sculatures are mildly congested. Mediastinal drainage tube and left-sided chest tubes are present. Heart size is mildly enlarged. Left basal atelectasis is seen. Midline sternotomy wires present. No evidence of pneu mothorax at 1636 Reported and signed by: Ortega Nicole M.D. CC: Gwyn Hurst MD; Trey Ybarra MD; Donny Couch NP Technologist: BHANU GOLDBERG; Abner River, RT(R Trnscrd Date/Time/By: 2018 (316) : By: MichaelL Orig Print D/T: S: 02/20/2019 (3534) PAGE 1 Signed Report ARTERIAL BLOOD [id number] 09:32:00* Test Item Value Reference Range Comments ARTERIAL BLOOD GAS PH (test code=PHA) 7.41 7.35-7.45 ARTERIAL BLOOD GAS PCO2 (test code=PCO2A) 38.3 mm Hg 35-45 ARTERIAL BLOOD GAS PO2 (test code=PO2A) 169.4 mmHg 80-100 BICARBONATE TOTAL HCO3 (test code=HCO3) 23.6 mmol/L 23.0-27.0 BASE EXCESS (test code=JEAN-CLAUDE) -0.8 mmol/L -3.0-5.0 ABG O2 SATURATION (test code=SATA) 99.1 % 90.0-98.0 ABG TYPE (test code=TYPEA) Arterial FIO2 (test code=FIO2A) 50.0 ABG SITE (test code=SITEA) OT MODIFIED ALLENS (test code=MODALL) Unable CHECK PERFORMED HEMATOCRIT (test code=HCT/ABG) 41 % 42-52 TOTAL HGB (test code=THB) 14.1 gram/dL 13.0-17.5 HGB O2 SAT (test code=HBOSAT) 98.4 % 94.00-98.00 CARBOXYHEMOGLOBIN (test code=HOHGBT) 0.7 %totalHg 0.5-1.5 METHEMOGLOBIN (test code=METHGB) 0.0 % 0.0-1.50 O2 CONTENT (test code=O2CT) 19.8 % vol 18.0-22.0 [id number] 07:51:00* Test Item Value Reference Range Comments GLUBED (test code=GLUBED) 152 mg/dL 74-106 Performed by certified wagon drill operator at [facility] DILANTIN (PHENYTOIN)2019-02-19 15:49:00* Test Item Value Reference Range Comments DILANTIN (PHENYTOIN) (test code=DIL) 12.7 ug/mL 10.0-20.0 THROMBOPLASTIN TIME [id number] 15:41:00* Test Item Value Reference Range Comments THROMBOPLASTIN TIME PARTIAL (test code=PTT) 48.1 seconds 25.0-36.5 COMPREHENSIVE METABOLIC [id number] 11:25:00* Test Item Value Reference Range Comments SODIUM (test code=NA) 136 mmol/L 136-145 POTASSIUM (test code=K) 4.3 mmol/L 3.5-5.1 CHLORIDE (test code=CL) 102.0 mmol/L 98-107 CARBON DIOXIDE (test code=CO2) 28.0 mmol/L 21-32 ANION GAP (test code=GAP) 10.3 10-20 GLUCOSE (test code=GLU) 198 mg/dL 74-106 BLOOD UREA NITROGEN (test code=BUN) 17 mg/dL 7-18 GLOMERULAR FILTRATION RATE (test code=GFR) > 60 mL/min >=60 Estimated GFR by using Modified MDRD formula.Chronic kidney disease is defined as either kidney damageor GFR <60 mL/min/1.73 m2 for >3 months. CREATININE (test code=CREAT) 0.90 mg/dL 0.7-1.3 BUN/CREATININE RATIO (test code=BUN/CREA) 18.9 10-20 TOTAL PROTEIN (test code=PROT) 8.3 gram/dL 6.4-8.2 ALBUMIN (test code=ALB) 3.8 g/dL 3.4-5.0 GLOBULIN (test code=GLOB) 4.5 gram/dL 2.7-4.2 ALBUMIN/GLOBULIN RATIO (test code=A/G) 0.8 0.75-1.50 CALCIUM (test code=CA) 9.8 mg/dL 8.5-10.1 BILIRUBIN TOTAL (test code=BILT) 0.40 mg/dL 0.0-1.0 SGOT/AST (test code=AST) 38 IUnit/L 15-37 SGPT/ALT (test code=ALT) 79 IUnit/L 12-78 ALKALINE PHOSPHATASE TOTAL (test code=ALKP) 165 IUnit/L 45-117 Note change in reference range due to change in reagent. COMPREHENSIVE METABOLIC [id number] 11:02:00* Test Item Value Reference Range Comments SODIUM (test code=NA) 136 mmol/L 136-145 POTASSIUM (test code=K) 4.3 mmol/L 3.5-5.1 CHLORIDE (test code=CL) 102.0 mmol/L 98-107 CARBON DIOXIDE (test code=CO2) mmol/L 21-32 ANION GAP (test code=GAP) 10-20 GLUCOSE (test code=GLU) mg/dL 74-106 BLOOD UREA NITROGEN (test code=BUN) mg/dL 7-18 GLOMERULAR FILTRATION RATE (test code=GFR) mL/min >=60 CREATININE (test code=CREAT) mg/dL 0.7-1.3 BUN/CREATININE RATIO (test code=BUN/CREA) 10-20 TOTAL PROTEIN (test code=PROT) gram/dL 6.4-8.2 ALBUMIN (test code=ALB) g/dL 3.4-5.0 GLOBULIN (test code=GLOB) gram/dL 2.7-4.2 ALBUMIN/GLOBULIN RATIO (test code=A/G) 0.75-1.50 CALCIUM (test code=CA) mg/dL 8.5-10.1 BILIRUBIN TOTAL (test code=BILT) mg/dL 0.0-1.0 SGOT/AST (test code=AST) IUnit/L 15-37 SGPT/ALT (test code=ALT) IUnit/L 12-78 ALKALINE PHOSPHATASE TOTAL (test code=ALKP) IUnit/L 45-117 URINALYSIS [id number] 10:55:00* Test Item Value Reference Range Comments UA COLOR (test code=COLU) YELLOW YELLOW UA APPEARANCE (test code=APPU) CLEAR CLEAR UA GLUCOSE DIPSTICK (test code=DGLUU) 200 (2+) mg/dL NEGATIVE UA BILIRUBIN DIPSTICK (test code=BILU) NEGATIVE mg/dL NEGATIVE UA KETONE DIPSTICK (test code=KETU) NEGATIVE mg/dL NEGATIVE UA SPECIFIC GRAVITY (test code=SGU) 1.026 1.001-1.035 UA BLOOD DIPSTICK (test code=AMEYA) Negative mg/dL NEGATIVE UA PH DIPSTICK (test code=MAGNO) 5.5 5.0-8.0 UA PROTEIN DIPSTICK (test code=PROU) 50 (1+) mg/dL NEGATIVE UA UROBILINIOGEN DIPSTICK (test code=URO) Normal mg/dL NEGATIVE UA NITRITE DIPSTICK (test code=JARROD) NEGATIVE NEGATIVE UA LEUKOCYTE ESTERASE W REFLEX (test code=LEUUR) NEGATIVE Jarrett/uL NEGATIVE UA WBC (test code=WBCU) 0-5 per HPF 0-5 UA RBC (test code=RBCU) 0-2 #/HPF 0-5 UA EPITHELIAL CELLS (test code=EPIU) Few (2-5/hpf) per HPF FEW UA BACTERIA (test code=BACU) FEW #/HPF NONE UA MUCUS (test code=MUCU) FEW #/LPF FEW PROTHROMBIN [id number] 10:51:00* Test Item Value Reference Range Comments PROTHROMBIN TIME PATIENT (test code=PTP) 12.5 seconds 9.0-14.0 INTERNATIONAL NORMAL RATIO (test code=INR) 1.1 0.8-1.2 The therapeutic range for oral anticoagulant therapy formost indications is an international normalized ratio (INR)of between 2.0 and 3.0. The recommended therapeutic INRrange for various clinical situations is listed below: Clinical Situation INR range Pulmonary e mbolism treatment (2.0-3.0)Venous thrombosis treatmentVenous thrombosis prophylaxis (high risk surgery)Prevention of systemic embolism from: Acute myocardial infarction Valvular heart disease Atrial fibrillation Mechanical prosthetic heart valves (2.5-3.5) THROMBOPLASTIN TIME [id number] 10:51:00* Test Item Value Reference Range Comments THROMBOPLASTIN TIME PARTIAL (test code=PTT) 48.1 seconds 25.0-36.5 CBC W/AUTO [id number] 10:46:00* Test Item Value Reference Range Comments WHITE BLOOD CELL (test code=WBC) 8.9 K/mm3 4.5-12.5 RED BLOOD CELL (test code=RBC) 5.24 mill/mm3 4.0-5.8 HEMOGLOBIN (test code=HGB) 16.5 gram/dL 13.0-17.5 HEMATOCRIT (test code=HCT) 51.9 % 42.0-52.0 MEAN CELL VOLUME (test code=MCV) 99.0 fL 80-98 MEAN CELL HGB (test code=MCH) 31.5 picogram 27.0-33.0 MEAN CELL HGB CONCETRATION (test code=MCHC) 31.8 gram/dL 33.0-36.0 RED CELL DISTRIBUTION WIDTH (test code=RDW) 11.9 % 11.6-16.2 RED CELL DISTRIBUTION WIDTH SD (test code=RDW-SD) 43.7 fL 37.0-51.0 PLATELET COUNT (test code=PLT) 188 K/mm3 150-450 MEAN PLATELET VOLUME (test code=MPV) 10.9 fL 6.7-11.0 NEUTROPHIL % (test code=NT%) 62.4 % 39.0-69.0 IMMATURE GRANULOCYTE % (test code=IG%) 0.4 % 0.0-5.0 LYMPHOCYTE % (test code=LY%) 24.4 % 25.0-55.0 MONOCYTE % (test code=MO%) 10.9 % 0.0-10.0 EOSINOPHIL % (test code=EO%) 0.9 % 0.0-5.0 BASOPHIL % (test code=BA%) 1.0 % 0.0-1.0 NUCLEATED RBC % (test code=NRBC%) 0.0 % 0-0 NEUTROPHIL # (test code=NT#) 5.56 K/mm3 1.8-7.7 IMMATURE GRANULOCYTE # (test code=IG#) 0.04 x10 3/uL 0-0.03 LYMPHOCYTE # (test code=LY#) 2.18 K/mm3 1.0-5.0 MONOCYTE # (test code=MO#) 0.97 K/mm3 0-0.8 EOSINOPHIL # (test code=EO#) 0.08 K/mm3 0.0-0.5 BASOPHIL # (test code=BA#) 0.09 K/mm3 0.0-0.2 NUCLEATED RBC # (test code=NRBC#) 0.00 K/mm3 0.0-0.1 MANUAL DIFF REQUIRED (test code=MDIFF) NO CBC W/AUTO [id number] 10:44:00* Test Item Value Reference Range Comments WHITE BLOOD CELL (test code=WBC) K/mm3 4.5-12.5 RED BLOOD CELL (test code=RBC) mill/mm3 4.0-5.8 HEMOGLOBIN (test code=HGB) 16.5 gram/dL 13.0-17.5 HEMATOCRIT (test code=HCT) 51.9 % 42.0-52.0 MEAN CELL VOLUME (test code=MCV) fL 80-98 MEAN CELL HGB (test code=MCH) picogram 27.0-33.0 MEAN CELL HGB CONCETRATION (test code=MCHC) gram/dL 33.0-36.0 RED CELL DISTRIBUTION WIDTH (test code=RDW) % 11.6-16.2 RED CELL DISTRIBUTION WIDTH SD (test code=RDW-SD) fL 37.0-51.0 PLATELET COUNT (test code=PLT) K/mm3 150-450 MEAN PLATELET VOLUME (test code=MPV) fL 6.7-11.0 NEUTROPHIL % (test code=NT%) % 39.0-69.0 IMMATURE GRANULOCYTE % (test code=IG%) % 0.0-5.0 LYMPHOCYTE % (test code=LY%) % 25.0-55.0 MONOCYTE % (test code=MO%) % 0.0-10.0 EOSINOPHIL % (test code=EO%) % 0.0-5.0 BASOPHIL % (test code=BA%) % 0.0-1.0 NEUTROPHIL # (test code=NT#) K/mm3 1.8-7.7 LYMPHOCYTE # (test code=LY#) K/mm3 1.0-5.0 MONOCYTE # (test code=MO#) K/mm3 0-0.8 EOSINOPHIL # (test code=EO#) K/mm3 0.0-0.5 BASOPHIL # (test code=BA#) K/mm3 0.0-0.2 [id number] 14:08:00* Test Item Value Reference Range Comments LEVETIRACETAM (test code=LEVTAM) 4.1 ug/mL 10.0-40.0 This test was developed and its performance characteristicsdetermined by [facility]. It has not been cleared orapproved by the Food and Drug Administration.Performed At: [address] [id number] Centeno MD Ph:[phone] [id number] 16:41:00* Test Item Value Reference Range Comments GLUBED (test code=GLUBED) 136 mg/dL 74-106 Performed by certified wagon drill operator at [facility] T4 [id number] 14:30:00* Test Item Value Reference Range Comments T4 FREE (test code=T4F) 0.97 ng/dL 0.76-1.46 THYROID STIMULATING [id number] 14:30:00* Test Item Value Reference Range Comments THYROID STIMULATING HORMONE (test code=TSH) 3.610 uIU/mL 0.36-3.74 TSH REFERENCE RANGES: EUTHYROID: 0.35 - 4.3 mIU/mL HYPO : > 5.5 mIU/mL HYPER : < 0.35 mIU/mL [id number] 12:07:00* Test Item Value Reference Range Comments GLUBED (test code=GLUBED) 129 mg/dL 74-106 Performed by certified wagon drill operator at [facility] - XR CHEST 2 [id number] 11:44:00 FAX: Karly Abrams MD [phone] [place]: St: ADM FAX: Doe Gan MD [phone] FAX: Donny Couch BILINGUAL RESEARCH INTERVIEWER Name: NANCY BOO [facility] : 1965 Age/S: 53/M [address] Unit #: [id number] Loc: V.6 [place] [address] Phys: Donny Couch NP Acct: [id number] Dis Date: Status: ADM IN ONE #: [phone] Exam Date: 02/07/2019 1106 FAX #: [phone] Reason: PRE CABG EVALUATION EXAMS: CPT CODE: [id number] XR CHEST 2 V [id number] REASON FOR EXAM: PRE CABG EVALUATION Exam Order Date: 02/07/2019 5:00 AM Ordering M.DVirginia: Donny Couch NP PROCEDURE: - XR CHEST 2 V COMPARISON: CT chest earlier today FINDING S: The lungs are clear. There is no pleural effusion or pneumothorax. Pulmonary vascularity is within normal limits. Cardiomediasti nal silhouette is normal in size for technique. The mediastinal contours a re within normal limits. Fusion hardware is seen in the lower cerv ical spine. There are also degenerative changes in the thoracic spine. The visualized upper abdomen is within normal limits. IMPRESSION: No acute cardiopulmonary process. Location: [facility] at 1144 Reported and signed by: Agustin Sands MD CC: Karly Chavarria MD; Doe Gan MD; Donny Couch NP Technologist: Chata Mayen) Trnscrd Date/Time/By: 02/08/20 19 (1144) : By: [email or web address] [facility] Print D/T: S: 02/07/2019 (8039) PAGE 1 Signed Report DILANTIN (PHENYTOIN)2019-02-07 11:36:00* Test Item Value Reference Range Comments DILANTIN (PHENYTOIN) (test code=DIL) 4.0 ug/mL 10.0-20.0 B-TYPE NATRIURETIC [id number] 09:17:00* Test Item Value Reference Range Comments B-TYPE NATRIURETIC PEPTIDE (test code=BNP) 3.64 pgram/mL 0-100 COMPREHENSIVE METABOLIC [id number] 09:01:00* Test Item Value Reference Range Comments SODIUM (test code=NA) 136 mmol/L 136-145 POTASSIUM (test code=K) 4.1 mmol/L 3.5-5.1 CHLORIDE (test code=CL) 103.0 mmol/L 98-107 CARBON DIOXIDE (test code=CO2) 25.0 mmol/L 21-32 ANION GAP (test code=GAP) 12.1 10-20 GLUCOSE (test code=GLU) 138 mg/dL 74-106 BLOOD UREA NITROGEN (test code=BUN) 12 mg/dL 7-18 GLOMERULAR FILTRATION RATE (test code=GFR) > 60 mL/min >=60 Estimated GFR by using Modified MDRD formula.Chronic kidney disease is defined as either kidney damageor GFR <60 mL/min/1.73 m2 for >3 months. CREATININE (test code=CREAT) 0.80 mg/dL 0.7-1.3 BUN/CREATININE RATIO (test code=BUN/CREA) 15.8 10-20 TOTAL PROTEIN (test code=PROT) 8.4 gram/dL 6.4-8.2 ALBUMIN (test code=ALB) 3.9 g/dL 3.4-5.0 GLOBULIN (test code=GLOB) 4.5 gram/dL 2.7-4.2 ALBUMIN/GLOBULIN RATIO (test code=A/G) 0.9 0.75-1.50 CALCIUM (test code=CA) 9.7 mg/dL 8.5-10.1 BILIRUBIN TOTAL (test code=BILT) 0.60 mg/dL 0.0-1.0 SGOT/AST (test code=AST) 44 IUnit/L 15-37 SGPT/ALT (test code=ALT) 64 IUnit/L 12-78 ALKALINE PHOSPHATASE TOTAL (test code=ALKP) 161 IUnit/L 45-117 Note change in reference range due to change in reagent. HEPATIC FUNCTION [id number] 09:01:00* Test Item Value Reference Range Comments BILIRUBIN DIRECT (test code=BILD) 0.15 mg/dL 0.0-0.20 COMPREHENSIVE METABOLIC [id number] 08:49:00* Test Item Value Reference Range Comments SODIUM (test code=NA) 136 mmol/L 136-145 POTASSIUM (test code=K) 4.1 mmol/L 3.5-5.1 CHLORIDE (test code=CL) 103.0 mmol/L 98-107 CARBON DIOXIDE (test code=CO2) mmol/L 21-32 ANION GAP (test code=GAP) 10-20 GLUCOSE (test code=GLU) mg/dL 74-106 BLOOD UREA NITROGEN (test code=BUN) mg/dL 7-18 GLOMERULAR FILTRATION RATE (test code=GFR) mL/min >=60 CREATININE (test code=CREAT) mg/dL 0.7-1.3 BUN/CREATININE RATIO (test code=BUN/CREA) 10-20 TOTAL PROTEIN (test code=PROT) gram/dL 6.4-8.2 ALBUMIN (test code=ALB) g/dL 3.4-5.0 GLOBULIN (test code=GLOB) gram/dL 2.7-4.2 ALBUMIN/GLOBULIN RATIO (test code=A/G) 0.75-1.50 CALCIUM (test code=CA) mg/dL 8.5-10.1 BILIRUBIN TOTAL (test code=BILT) mg/dL 0.0-1.0 SGOT/AST (test code=AST) IUnit/L 15-37 SGPT/ALT (test code=ALT) IUnit/L 12-78 ALKALINE PHOSPHATASE TOTAL (test code=ALKP) IUnit/L 45-117 HEPATIC FUNCTION [id number] 08:49:00* Test Item Value Reference Range Comments BILIRUBIN DIRECT (test code=BILD) mg/dL 0.0-0.20 - CT CHEST W/O [id number] 07:49:00 Name: NANCY BOO [facility] : 1965 Age/S: 53 / M [address] [facility] Unit #: [id number] Loc: [place] [address] Phys: Donny Couch [employer]VIEW[employer] Acct: [id number] Dis Date: Status: ADM IN PHONE #: [phone] Exam Date: 02/07/2019732 FAX #: [phone] Reason: PRE CABG EVALUATION EXAMS: CPT CODE: [id number] CT CHEST W/O CONTRAST 52325 HISTORY: Chest pain, hypertensive urgency TECHNIQUE: [address] images were obtained through the chest without contrast. Automated exposure control for dose reduction. DLP: 354 mGy-cm COMPARISON: Chest x-ray 02/04/19 FINDINGS: Statements: Lack of intravenous contrast limits evaluation of mediastinal contents. Lungs: No airspace consolidation or pleural effusion. Central airways are patent. Cardiovascular: Normal heart size. Coronary artery and thoracic aortic vascular calcification. No pericardial effusion. No thoracic aortic aneurysm. Normal caliber pulmonary arteries. Mediastinum: No lymphadenopathy. Visualized thyroid is unremarkable. Normal esophagus. Included upper abdomen: Hepatic steatosis. Suspect left nephrectomy. Bones and superficial soft tissues: Mild degenerative changes of the spine and shoulders. Lower cervical fusion. IMPRESSION: No acute findings on noncontrast chest CT. Coronary artery and thoracic aortic vascular calcification. LOCATION: LP at 0749 Reported and signed by: Madeline Bah D.O. PAGE 1 Signed Report (CONTINUED) Name: NANCY BOO [facility] : 1965 Age/S: 53 / M [address] [facility] Unit #: [id number] Loc: [facility]inco[facility]AVANA [id number] Phys: Donny Couch NP Acct: [id number] Dis Date: Status: ADM IN PHONE #: [phone] Exam Date: 02/07/2019732 FAX #: [phone] Reason: PRE CABG EVALUATION EXAMS: CPT CODE: [id number] CT CHEST W/O CONTRAST 27546 < Continued> CC: Karly Chavarria MD; Doe Gan MD; Donny Couch NP Technologist:Raúl Montemayor RT(R),(MR),(CT); CTDI: DLP: Trnscb Date/Time: 02/07/2019 (0749) [email or web address] Orig Print D/T: S: 02/07/2019 (0752) PAGE 2 Signed Report [id number] 06:01:00* Test Item Value Reference Range Comments GLUBED (test code=GLUBED) 145 mg/dL 74-106 Performed by certified wagon drill operator at [facility] ARTERIAL BLOOD [id number] 05:33:00* Test Item Value Reference Range Comments ARTERIAL BLOOD GAS PH (test code=PHA) 7.45 7.35-7.45 ARTERIAL BLOOD GAS PCO2 (test code=PCO2A) 40.0 mm Hg 35-45 ARTERIAL BLOOD GAS PO2 (test code=PO2A) 101.5 mmHg 80-100 BICARBONATE TOTAL HCO3 (test code=HCO3) 27.1 mmol/L 23.0-27.0 BASE EXCESS (test code=JEAN-CLAUDE) 3.0 mmol/L -3.0-5.0 ABG O2 SATURATION (test code=SATA) 98.3 % 90.0-98.0 ABG TYPE (test code=TYPEA) Arterial FIO2 (test code=FIO2A) 21.0 ABG SITE (test code=SITEA) Lt RADIAL ARTERY MODIFIED ALLENS (test code=MODALL) Yes CHECK PERFORMED SODIUM (test code=NA/ABG) 135.1 mEq/L 135-148 POTASSIUM (test code=K/ABG) 4.3 mEq/L 3.5-4.5 CHLORIDE (test code=CL/ABG) 100 mEq/L 98-106 GLUCOSE (test code=GLU/ABG) 149 mg/dL 74-99 HEMATOCRIT (test code=HCT/ABG) 50 % 42-52 IONIZED CALCIUM (test code=CAIABG) 1.19 mmol/L 1.1-1.37 TOTAL HGB (test code=THB) 17.1 gram/dL 13.0-17.5 HGB O2 SAT (test code=HBOSAT) 95.9 % 94.00-98.00 CARBOXYHEMOGLOBIN (test code=HOHGBT) 1.9 %totalHg 0.5-1.5 METHEMOGLOBIN (test code=METHGB) 0.5 % 0.0-1.50 O2 CONTENT (test code=O2CT) 23.1 % vol 18.0-22.0 [id number] 20:18:00* Test Item Value Reference Range Comments GLUBED (test code=GLUBED) 132 mg/dL 74-106 Performed by certified wagon drill operator at [facility] [id number] 17:08:00* Test Item Value Reference Range Comments GLUBED (test code=GLUBED) 215 mg/dL 74-106 Performed by certified wagon drill operator at [facility] [id number] 12:25:00* Test Item Value Reference Range Comments GLUBED (test code=GLUBED) 119 mg/dL 74-106 Performed by certified wagon drill operator at [facility] [id number] 06:23:00* Test Item Value Reference Range Comments GLUBED (test code=GLUBED) 144 mg/dL 74-106 Performed by certified wagon drill operator at [facility] THROMBOPLASTIN TIME [id number] 04:48:00* Test Item Value Reference Range Comments THROMBOPLASTIN TIME PARTIAL (test code=PTT) 71.6 seconds 25.0-36.5 IS PATIENT ON ANTICOAGULANTS? YLIST ANTICOAGULANTS HEPARINTHROMBOPLASTIN TIME [id number] 22:18:00* Test Item Value Reference Range Comments THROMBOPLASTIN TIME PARTIAL (test code=PTT) 78.9 seconds 25.0-36.5 IS PATIENT ON ANTICOAGULANTS? YLIST ANTICOAGULANTS [id number] 19:28:00* Test Item Value Reference Range Comments GLUBED (test code=GLUBED) 233 mg/dL 74-106 Performed by certified wagon drill operator at [facility] PROTHROMBIN [id number] 19:20:00* Test Item Value Reference Range Comments PROTHROMBIN TIME PATIENT (test code=PTP) 12.3 seconds 9.0-14.0 INTERNATIONAL NORMAL RATIO (test code=INR) 1.0 0.8-1.2 The therapeutic range for oral anticoagulant therapy formost indications is an international normalized ratio (INR)of between 2.0 and 3.0. The recommended therapeutic INRrange for various clinical situations is listed below: Clinical Situation INR range Pulmonary e mbolism treatment (2.0-3.0)Venous thrombosis treatmentVenous thrombosis prophylaxis (high risk surgery)Prevention of systemic embolism from: Acute myocardial infarction Valvular heart disease Atrial fibrillation Mechanical prosthetic heart valves (2.5-3.5) - CT HEAD/BRAIN W/O [id number] 19:18:00 Name: NANCY BOO [facility] : 1965 Age/S: 53 / M [address] [facility]: [id number] Loc: [place] [address] Phys: Di Burns NP Acct: [id number] Dis Date: Status: ADM IN PHONE #: [phone] Exam Date: 02/05/20191914 FAX #: [phone] Reason: SLURRED SPEECH EXAMS: CPT CODE: [id number] CT HEAD/BRAIN W/O CONT 60028 REASON FOR EXAM: SLURRED SPEECH EXAM ORDER DATE: 02/05/2019 7:06 PM Ordering: Di Burns NP Attending:Doe Gan MD Location: PROCEDURE: - CT HEAD/BRAIN W/O CONT COMPARISON: 11/17/2008 FINDINGS: CT images of the brain were obtained without IV contrast. Dose modulation, iterative reconstruction, and/or weight based adjustment of the MA/KV was utilized to reduce the radiation dose to as low as reasonably achievable. The brain parenchyma is within normal limits. The chau-white matter delineation is unremarkable. The ventricles, cisterns, and sulci are unremarkable. There is no evidence of hemorrhage, mass, mass effect. There is no evidence of acute infarct. 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 No acute findings at 1918 Reported and signed by: Ortega Nicole M.D. CC: Karly Chavarria MD; Doe Gan MD; Di Burns NP Technologist:RT MANINDER(R) CT CTDI: DLP: Trnscb Date/Time: 02/05/2019 (1917) Jennifer Orig Print D/T: S: 02/05/2019 (1921) PAGE 1 Signed Report [id number] 16:29:00* Test Item Value Reference Range Comments GLUBED (test code=GLUBED) 148 mg/dL 74-106 Performed by certified wagon drill operator at [facility] THROMBOPLASTIN TIME [id number] 14:07:00* Test Item Value Reference Range Comments THROMBOPLASTIN TIME PARTIAL (test code=PTT) 44.2 seconds 25.0-36.5 IS PATIENT ON ANTICOAGULANTS? YLIST ANTICOAGULANTS [id number] 12:44:00* Test Item Value Reference Range Comments GLUBED (test code=GLUBED) 210 mg/dL 74-106 Performed by certified wagon drill operator at [facility] BASIC METABOLIC [id number] 07:23:00* Test Item Value Reference Range Comments SODIUM (test code=NA) 138 mmol/L 136-145 POTASSIUM (test code=K) 4.3 mmol/L 3.5-5.1 CHLORIDE (test code=CL) 101.0 mmol/L 98-107 CARBON DIOXIDE (test code=CO2) 28.0 mmol/L 21-32 ANION GAP (test code=GAP) 13.3 10-20 GLUCOSE (test code=GLU) 152 mg/dL 74-106 BLOOD UREA NITROGEN (test code=BUN) 12 mg/dL 7-18 GLOMERULAR FILTRATION RATE (test code=GFR) > 60 mL/min >=60 Estimated GFR by using Modified MDRD formula.Chronic kidney disease is defined as either kidney damageor GFR <60 mL/min/1.73 m2 for >3 months. CREATININE (test code=CREAT) 0.70 mg/dL 0.7-1.3 BUN/CREATININE RATIO (test code=BUN/CREA) 17.7 10-20 CALCIUM (test code=CA) 9.5 mg/dL 8.5-10.1 BASIC METABOLIC [id number] 07:22:00* Test Item Value Reference Range Comments SODIUM (test code=NA) 138 mmol/L 136-145 POTASSIUM (test code=K) 4.3 mmol/L 3.5-5.1 CHLORIDE (test code=CL) 101.0 mmol/L 98-107 CARBON DIOXIDE (test code=CO2) mmol/L 21-32 ANION GAP (test code=GAP) 10-20 GLUCOSE (test code=GLU) mg/dL 74-106 BLOOD UREA NITROGEN (test code=BUN) mg/dL 7-18 GLOMERULAR FILTRATION RATE (test code=GFR) mL/min >=60 CREATININE (test code=CREAT) mg/dL 0.7-1.3 BUN/CREATININE RATIO (test code=BUN/CREA) 10-20 CALCIUM (test code=CA) mg/dL 8.5-10.1 THROMBOPLASTIN TIME [id number] 06:31:00* Test Item Value Reference Range Comments THROMBOPLASTIN TIME PARTIAL (test code=PTT) 75.8 seconds 25.0-36.5 IS PATIENT ON ANTICOAGULANTS? YLIST ANTICOAGULANTS HEPARINCBC W/AUTO DIFF 2019-02-05 06:29:00* Test Item Value Reference Range Comments WHITE BLOOD CELL (test code=WBC) 9.2 K/mm3 4.5-12.5 RED BLOOD CELL (test code=RBC) 5.32 mill/mm3 4.0-5.8 HEMOGLOBIN (test code=HGB) 16.7 gram/dL 13.0-17.5 HEMATOCRIT (test code=HCT) 49.8 % 42.0-52.0 MEAN CELL VOLUME (test code=MCV) 93.6 fL 80-98 MEAN CELL HGB (test code=MCH) 31.4 picogram 27.0-33.0 MEAN CELL HGB CONCETRATION (test code=MCHC) 33.5 gram/dL 33.0-36.0 RED CELL DISTRIBUTION WIDTH (test code=RDW) 12.3 % 11.6-16.2 RED CELL DISTRIBUTION WIDTH SD (test code=RDW-SD) 42.6 fL 37.0-51.0 PLATELET COUNT (test code=PLT) 215 K/mm3 150-450 MEAN PLATELET VOLUME (test code=MPV) 10.5 fL 6.7-11.0 NEUTROPHIL % (test code=NT%) 52.0 % 39.0-69.0 IMMATURE GRANULOCYTE % (test code=IG%) 0.4 % 0.0-5.0 LYMPHOCYTE % (test code=LY%) 37.6 % 25.0-55.0 MONOCYTE % (test code=MO%) 8.2 % 0.0-10.0 EOSINOPHIL % (test code=EO%) 1.2 % 0.0-5.0 BASOPHIL % (test code=BA%) 0.6 % 0.0-1.0 NUCLEATED RBC % (test code=NRBC%) 0.0 % 0-0 NEUTROPHIL # (test code=NT#) 4.80 K/mm3 1.8-7.7 IMMATURE GRANULOCYTE # (test code=IG#) 0.04 x10 3/uL 0-0.03 LYMPHOCYTE # (test code=LY#) 3.47 K/mm3 1.0-5.0 MONOCYTE # (test code=MO#) 0.76 K/mm3 0-0.8 EOSINOPHIL # (test code=EO#) 0.11 K/mm3 0.0-0.5 BASOPHIL # (test code=BA#) 0.06 K/mm3 0.0-0.2 NUCLEATED RBC # (test code=NRBC#) 0.00 K/mm3 0.0-0.1 MANUAL DIFF REQUIRED (test code=MDIFF) NO CBC W/AUTO [id number] 06:20:00* Test Item Value Reference Range Comments WHITE BLOOD CELL (test code=WBC) K/mm3 4.5-12.5 RED BLOOD CELL (test code=RBC) mill/mm3 4.0-5.8 HEMOGLOBIN (test code=HGB) 16.7 gram/dL 13.0-17.5 HEMATOCRIT (test code=HCT) 49.8 % 42.0-52.0 MEAN CELL VOLUME (test code=MCV) fL 80-98 MEAN CELL HGB (test code=MCH) picogram 27.0-33.0 MEAN CELL HGB CONCETRATION (test code=MCHC) gram/dL 33.0-36.0 RED CELL DISTRIBUTION WIDTH (test code=RDW) % 11.6-16.2 RED CELL DISTRIBUTION WIDTH SD (test code=RDW-SD) fL 37.0-51.0 PLATELET COUNT (test code=PLT) K/mm3 150-450 MEAN PLATELET VOLUME (test code=MPV) fL 6.7-11.0 NEUTROPHIL % (test code=NT%) % 39.0-69.0 IMMATURE GRANULOCYTE % (test code=IG%) % 0.0-5.0 LYMPHOCYTE % (test code=LY%) % 25.0-55.0 MONOCYTE % (test code=MO%) % 0.0-10.0 EOSINOPHIL % (test code=EO%) % 0.0-5.0 BASOPHIL % (test code=BA%) % 0.0-1.0 NEUTROPHIL # (test code=NT#) K/mm3 1.8-7.7 LYMPHOCYTE # (test code=LY#) K/mm3 1.0-5.0 MONOCYTE # (test code=MO#) K/mm3 0-0.8 EOSINOPHIL # (test code=EO#) K/mm3 0.0-0.5 BASOPHIL # (test code=BA#) K/mm3 0.0-0.2 [id number] 06:05:00* Test Item Value Reference Range Comments GLUBED (test code=GLUBED) 155 mg/dL 74-106 Performed by certified wagon drill operator at [facility] [id number] 04:17:00* Test Item Value Reference Range Comments GLUBED (test code=GLUBED) 146 mg/dL 74-106 Performed by certified wagon drill operator at [facility] CREATINE KINASE (CK)2019-02-04 23:45:00* Test Item Value Reference Range Comments CREATINE KINASE (CK) (test code=CK) 246 IUnit/L 26-208 THROMBOPLASTIN TIME [id number] 21:36:00* Test Item Value Reference Range Comments THROMBOPLASTIN TIME PARTIAL (test code=PTT) 50.7 seconds 25.0-36.5 IS PATIENT ON ANTICOAGULANTS? [id number] 19:04:00* Test Item Value Reference Range Comments HEMATOCRIT (test code=HCT) 49.4 % 42.0-52.0 PLATELET [id number] 19:04:00* Test Item Value Reference Range Comments PLATELET COUNT (test code=PLT) 240 K/mm3 150-450 [id number] 19:02:00* Test Item Value Reference Range Comments HEMATOCRIT (test code=HCT) 49.4 % 42.0-52.0 PLATELET [id number] 19:02:00* Test Item Value Reference Range Comments PLATELET COUNT (test code=PLT) K/mm3 150-450 [id number] 16:56:00* Test Item Value Reference Range Comments GLUBED (test code=GLUBED) 236 mg/dL 74-106 Performed by certified wagon drill operator at [facility] [id number] 16:42:00* Test Item Value Reference Range Comments TROPONIN-I (test code=TROPI) 0.630 ng/mL 0-0.045 PREVIOUSLY CALLED. @Repeat Result: 0.627 PROTHROMBIN [id number] 16:27:00* Test Item Value Reference Range Comments PROTHROMBIN TIME PATIENT (test code=PTP) 12.8 seconds 9.0-14.0 INTERNATIONAL NORMAL RATIO (test code=INR) 1.1 0.8-1.2 The therapeutic range for oral anticoagulant therapy formost indications is an international normalized ratio (INR)of between 2.0 and 3.0. The recommended therapeutic INRrange for various clinical situations is listed below: Clinical Situation INR range Pulmonary e mbolism treatment (2.0-3.0)Venous thrombosis treatmentVenous thrombosis prophylaxis (high risk surgery)Prevention of systemic embolism from: Acute myocardial infarction Valvular heart disease Atrial fibrillation Mechanical prosthetic heart valves (2.5-3.5) IS PATIENT ON ANTICOAGULANTS? [id number] 14:22:00* Test Item Value Reference Range Comments TROPONIN-I (test code=TROPI) 0.357 ng/mL 0-0.045 [id number] 14:18:00* Test Item Value Reference Range Comments MAGNESIUM (test code=MAG) 1.8 mg/dL 1.8-2.4 THYROID STIMULATING [id number] 14:18:00* Test Item Value Reference Range Comments THYROID STIMULATING HORMONE (test code=TSH) 2.080 uIU/mL 0.36-3.74 TSH REFERENCE RANGES: EUTHYROID: 0.35 - 4.3 mIU/mL HYPO : > 5.5 mIU/mL HYPER : < 0.35 mIU/mL [id number] 12:23:00* Test Item Value Reference Range Comments GLUBED (test code=GLUBED) 157 mg/dL 74-106 Performed by certified wagon drill operator at [facility] COMPREHENSIVE METABOLIC [id number] 11:53:00* Test Item Value Reference Range Comments SODIUM (test code=NA) 138 mmol/L 136-145 POTASSIUM (test code=K) 4.7 mmol/L 3.5-5.1 CHLORIDE (test code=CL) 102.0 mmol/L 98-107 CARBON DIOXIDE (test code=CO2) 32.0 mmol/L 21-32 ANION GAP (test code=GAP) 8.7 10-20 GLUCOSE (test code=GLU) 180 mg/dL 74-106 BLOOD UREA NITROGEN (test code=BUN) 9 mg/dL 7-18 GLOMERULAR FILTRATION RATE (test code=GFR) > 60 mL/min >=60 Estimated GFR by using Modified MDRD formula.Chronic kidney disease is defined as either kidney damageor GFR <60 mL/min/1.73 m2 for >3 months. CREATININE (test code=CREAT) 0.80 mg/dL 0.7-1.3 BUN/CREATININE RATIO (test code=BUN/CREA) 11.0 10-20 TOTAL PROTEIN (test code=PROT) 7.9 gram/dL 6.4-8.2 ALBUMIN (test code=ALB) 3.7 g/dL 3.4-5.0 GLOBULIN (test code=GLOB) 4.2 gram/dL 2.7-4.2 ALBUMIN/GLOBULIN RATIO (test code=A/G) 0.9 0.75-1.50 CALCIUM (test code=CA) 9.3 mg/dL 8.5-10.1 BILIRUBIN TOTAL (test code=BILT) 0.40 mg/dL 0.0-1.0 SGOT/AST (test code=AST) 29 IUnit/L 15-37 SGPT/ALT (test code=ALT) 54 IUnit/L 12-78 ALKALINE PHOSPHATASE TOTAL (test code=ALKP) 148 IUnit/L 45-117 Note change in reference range due to change in reagent. CPK-MB [id number] 11:53:00* Test Item Value Reference Range Comments CREATINE KINASE (CK) (test code=CK) 182 IUnit/L 26-208 CKMB (test code=CKMBT) 3.2 ng/mL 0-6.0 RELATIVE % INDEX (test code=REL%) 1.76 % 0.00-2.50 "If the total CK is elevated, the CKMB Fraction must beinterpreted as a Relative % Index, Normal is less than 2.5%"NOTE: Relative % Index is not valid with a normal total CK. [id number] 11:53:00* Test Item Value Reference Range Comments TROPONIN-I (test code=TROPI) 0.169 ng/mL 0-0.045 Results called to [id number] by HARITHA 02/04/19 1153Critical results verified and read back by Nurse? Y [id number] 11:23:00* Test Item Value Reference Range Comments GLYCOSYLATED HEMOGLOBIN (HA1C) (test code=GLYHGB) 9.5 % HbA1 SUGGESTED DIAGNOSIS: HbA1C (%) Diabetic >6.4Prediabetes 5.7 - 6.4Normal <5.7 ESTIMATED AVERAGE GLUCOSE (test code=EAG) 226 MG/DL LIPID PROFILE (CORONARY RISK)2019-02-04 11:22:00* Test Item Value Reference Range Comments TRIGLYCERIDES (test code=TRIG) 318 mg/dL 20-150 CHOLESTEROL (test code=CHOL) 269 mg/dL 0-200 CHOLESTEROL/HDL RATIO (test code=CHOLHDL) 5.0 RATIO 0-4.9 RISK ASSOCIATED WITH CHOL/HDL RATIOS: Risk Male Female1/2 AVERAGE 3.43 3.27AVERAGE 4.97 4.442X AVERAGE 9.55 7.053X AVERAGE 23.39 11.04 REFERENCE VALUE IS RELATED TO RISK LEVELS ASRECOMMENDED BY THE MARTHA. HEART, LUNG, AND BLOOD INST. HDL CHOLESTEROL (test code=HDL) 47 mg/dL 40-60 LIPOPROTEIN LDL (test code=LDL) 158 mg/dL 100-129 RN PERSONNEL, CONTACT PHYSICIAN IMMEDIATELY IF THIS IS A STROKE, AMI OR CAROTID STENOSIS PATIENT WHEN THE LDL >100 (1ST OCCURENCE, THIS ADMISSION) Reference Interval: mg/dL mmol/L Optimal <100 <2.6Near/above optimal 100-129 2.6- 3.3Borderline High 130-159 3.4-4.1High 160-189 4.1-4.9Very High >=190 >=4.9=========This LDL result is a direct measurement.========= COMPREHENSIVE METABOLIC [id number] 11:04:00* Test Item Value Reference Range Comments SODIUM (test code=NA) 138 mmol/L 136-145 POTASSIUM (test code=K) 4.7 mmol/L 3.5-5.1 CHLORIDE (test code=CL) 102.0 mmol/L 98-107 CARBON DIOXIDE (test code=CO2) mmol/L 21-32 ANION GAP (test code=GAP) 10-20 GLUCOSE (test code=GLU) mg/dL 74-106 BLOOD UREA NITROGEN (test code=BUN) mg/dL 7-18 GLOMERULAR FILTRATION RATE (test code=GFR) mL/min >=60 CREATININE (test code=CREAT) mg/dL 0.7-1.3 BUN/CREATININE RATIO (test code=BUN/CREA) 10-20 TOTAL PROTEIN (test code=PROT) gram/dL 6.4-8.2 ALBUMIN (test code=ALB) g/dL 3.4-5.0 GLOBULIN (test code=GLOB) gram/dL 2.7-4.2 ALBUMIN/GLOBULIN RATIO (test code=A/G) 0.75-1.50 CALCIUM (test code=CA) mg/dL 8.5-10.1 BILIRUBIN TOTAL (test code=BILT) mg/dL 0.0-1.0 SGOT/AST (test code=AST) IUnit/L 15-37 SGPT/ALT (test code=ALT) IUnit/L 12-78 ALKALINE PHOSPHATASE TOTAL (test code=ALKP) IUnit/L 45-117 CPK-MB [id number] 11:04:00* Test Item Value Reference Range Comments CREATINE KINASE (CK) (test code=CK) IUnit/L 26-208 CKMB (test code=CKMBT) ng/mL 0-6.0 RELATIVE % INDEX (test code=REL%) % 0.00-2.50 [id number] 11:04:00* Test Item Value Reference Range Comments TROPONIN-I (test code=TROPI) ng/mL 0-0.045 CBC W/AUTO [id number] 10:58:00* Test Item Value Reference Range Comments WHITE BLOOD CELL (test code=WBC) 10.3 K/mm3 4.5-12.5 RED BLOOD CELL (test code=RBC) 5.23 mill/mm3 4.0-5.8 HEMOGLOBIN (test code=HGB) 16.6 gram/dL 13.0-17.5 HEMATOCRIT (test code=HCT) 48.7 % 42.0-52.0 MEAN CELL VOLUME (test code=MCV) 93.1 fL 80-98 MEAN CELL HGB (test code=MCH) 31.7 picogram 27.0-33.0 MEAN CELL HGB CONCETRATION (test code=MCHC) 34.1 gram/dL 33.0-36.0 RED CELL DISTRIBUTION WIDTH (test code=RDW) 12.5 % 11.6-16.2 RED CELL DISTRIBUTION WIDTH SD (test code=RDW-SD) 42.6 fL 37.0-51.0 PLATELET COUNT (test code=PLT) 243 K/mm3 150-450 MEAN PLATELET VOLUME (test code=MPV) 10.3 fL 6.7-11.0 NEUTROPHIL % (test code=NT%) 64.3 % 39.0-69.0 IMMATURE GRANULOCYTE % (test code=IG%) 0.8 % 0.0-5.0 LYMPHOCYTE % (test code=LY%) 24.3 % 25.0-55.0 MONOCYTE % (test code=MO%) 8.9 % 0.0-10.0 EOSINOPHIL % (test code=EO%) 0.9 % 0.0-5.0 BASOPHIL % (test code=BA%) 0.8 % 0.0-1.0 NUCLEATED RBC % (test code=NRBC%) 0.0 % 0-0 NEUTROPHIL # (test code=NT#) 6.64 K/mm3 1.8-7.7 IMMATURE GRANULOCYTE # (test code=IG#) 0.08 x10 3/uL 0-0.03 LYMPHOCYTE # (test code=LY#) 2.51 K/mm3 1.0-5.0 MONOCYTE # (test code=MO#) 0.92 K/mm3 0-0.8 EOSINOPHIL # (test code=EO#) 0.09 K/mm3 0.0-0.5 BASOPHIL # (test code=BA#) 0.08 K/mm3 0.0-0.2 NUCLEATED RBC # (test code=NRBC#) 0.00 K/mm3 0.0-0.1 CBC W/AUTO [id number] 10:56:00* Test Item Value Reference Range Comments WHITE BLOOD CELL (test code=WBC) K/mm3 4.5-12.5 RED BLOOD CELL (test code=RBC) mill/mm3 4.0-5.8 HEMOGLOBIN (test code=HGB) 16.6 gram/dL 13.0-17.5 HEMATOCRIT (test code=HCT) 48.7 % 42.0-52.0 MEAN CELL VOLUME (test code=MCV) fL 80-98 MEAN CELL HGB (test code=MCH) picogram 27.0-33.0 MEAN CELL HGB CONCETRATION (test code=MCHC) gram/dL 33.0-36.0 RED CELL DISTRIBUTION WIDTH (test code=RDW) % 11.6-16.2 RED CELL DISTRIBUTION WIDTH SD (test code=RDW-SD) fL 37.0-51.0 PLATELET COUNT (test code=PLT) K/mm3 150-450 MEAN PLATELET VOLUME (test code=MPV) fL 6.7-11.0 NEUTROPHIL % (test code=NT%) % 39.0-69.0 IMMATURE GRANULOCYTE % (test code=IG%) % 0.0-5.0 LYMPHOCYTE % (test code=LY%) % 25.0-55.0 MONOCYTE % (test code=MO%) % 0.0-10.0 EOSINOPHIL % (test code=EO%) % 0.0-5.0 BASOPHIL % (test code=BA%) % 0.0-1.0 NEUTROPHIL # (test code=NT#) K/mm3 1.8-7.7 LYMPHOCYTE # (test code=LY#) K/mm3 1.0-5.0 MONOCYTE # (test code=MO#) K/mm3 0-0.8 EOSINOPHIL # (test code=EO#) K/mm3 0.0-0.5 BASOPHIL # (test code=BA#) K/mm3 0.0-0.2 - XR CHEST 1 [id number] 09:53:00 FAX: France Galvan [phone] [place]: St: ADM Name: NANCY KINSEY [facility] : [birth year] Age/S: 53/M [address] [facility] Unit #: [id number] Loc: V.[address] [place] [address] Phys: France Galvan MD Acct: [id number] Dis Date: Status: ADM IN PHONE #: [phone] Exam Date: 02/04/2019 09 FAX #: [phone] Reason: CHEST PAIN EXAMS: CPT CODE: [id number] XR CHEST 1 V [id number] HISTORY: CHEST PAIN TECHNIQUE: AP chest x-ray COMPARISON: None FINDINGS: No airspace consolidation or pleural effusion. Normal heart size. Mediastinal silhouette is unremarkable. Thoracic spondylosis. Lower cervical fusion. IMPRESSION: No radiographic evidence of acute cardiopulmonary process. LOCATION: at 0953 Reported and signed by: Madeline Coelman CC: [place] Galvan MD Technologist: Edmund GALLOWAY(Maikol) Trnscrd [facility] te/Time/By: 02/04/2019 (0953) : By: [email or web address] Orig Print D/T: S: 02/04 (0956) PAGE 1 Signed Report
[2019-06-14 06:46] LABS: BASOPHILS # (AUTO) 0.1 (0.0-0.1); BASOPHILS % 0.9 % (0.0-1.0); EOSINOPHILS # (AUTO) 0.1 (0.0-0.4); EOSINOPHILS % 1.7 % (0.0-6.0); HEMATOCRIT 44.7 % (38.2-49.6); HEMOGLOBIN 14.2 g/dL (14.0-18.0); LYMPHOCYTES # (AUTO) 2.4 (1.0-3.2); LYMPHOCYTES % 31.9 % (18.0-39.1); MEAN CORPUSCULAR HEMOGLOBIN 29.3 pg (28-32); MEAN CORPUSCULAR HGB CONC 31.8 g/dL (31-35); MEAN CORPUSCULAR VOLUME 92.4 fL (81-99); MONOCYTES # (AUTO) 1.1 (0.2-0.8); MONOCYTES % 14.8 % (4.4-11.3); NEUTROPHILS # (AUTO) 3.8 (2.1-6.9); NEUTROPHILS % 50.3 % (38.7-80.0); PLATELET COUNT 196 x10e3/uL (140-360); RED BLOOD COUNT 4.84 x10e6/uL (4.3-5.7)
--- NOTE | 2019-06-14 07:10 | NUR ---
SPIRITUAL CARE - Pre-Surgery Assessment: Pt in bed. Pt's at bedside. Pt reported supportive attention from family and friends. Intervention: I provided pastoral presence, hospitality, and sympathetic listening. I acquainted pt with availability of social media sr strategy manager while hospitalized. Outcome: Pt expressed appreciation for visit. No need for follow up indicated at this time. [facility] Spiritual Care Department O: [phone]
[2019-06-14 07:29] LABS: BLOOD UREA NITROGEN 14 mg/dL (7-26); BUN/CREATININE RATIO 19 (6-25); CALCIUM 9.8 mg/dL (8.4-10.2); CARBON DIOXIDE 25 mmol/L (22-29); CHLORIDE 107 mmol/L (98-107); CREATININE, SERUM 0.75 mg/dL (0.72-1.25); EST GLOMERULAR FILTRATION RATE > 60 ML/MIN (60-); GLUCOSE 119 mg/dL (74-118); SODIUM 141 mmol/L (136-145)
--- NOTE | 2019-06-14 09:31 | Operative Report ---
DATE OF PROCEDURE: 06/14/2019 SURGEON: Russell Zaragoza MD PREOPERATIVE DIAGNOSIS: Cubital tunnel syndrome, left arm. POSTOPERATIVE DIAGNOSIS: Cubital tunnel syndrome, left arm. OPERATION PERFORMED: Left ulnar nerve transposition. ANESTHESIA: General. HISTORY: The patient is a 53-year-old left-hand dominant male who presents with EMG-proven cubital tunnel syndrome. The risks, benefits, and alternatives to treatment were discussed with the patient and they are prepared to undergo the procedures as outlined. DESCRIPTION OF PROCEDURE: The patient was brought to the operating theater. After the induction of adequate general inhalation anesthesia, the patient was prepped and draped in a supine position. A time out was performed by the entire operating room team. The procedure was begun by marking out the medial epicondyle and marking out incisions that extended proximally and distally from the medial epicondyle for a distance of 5 cm. The left upper extremity was exsanguinated, and a tourniquet was inflated to a pressure of 250 mmHg. The procedure was begun by incising through the skin and subcutaneous tissues sharply. Bleeding was controlled using the bipolar cautery. The dissection continued into the subcutaneous plane, and branches of the medial antebrachial cutaneous nerve were identified and protected and preserved as best possible. The dissection continued directly onto the medial epicondyle. At this point, the skin and subcutaneous tissues were elevated off the medial epicondyle and flexor pronator muscles mass. Posteriorly the skin and subcutaneous tissues were elevated off the medial epicondyle down to the level of the olecranon. Proximal to the cubital tunnel the medial intramuscular septum was identified at its attachment to the medial epicondyle. Just posterior to the intramuscular septum the ulnar nerve was identified proximal to its entrance in the cubital tunnel. Using the ulnar nerve as a guide, the overlying tissues were incised, taking care to protect and preserve the ulnar nerve. The dissection continued distally through the cubital tunnel, and the overlying thickened tissues were incised, once again taking care to protect and preserve the ulnar nerve throughout its course. The dissection continued distally onto the flexor pronator muscle mass. The fascia overlying the ulnar nerve was divided sharply, and the muscle fibers were then gently teased apart. The dissection continued distally until both the 1st and 2nd muscular branches off the ulnar nerve were identified. At this point, a 1/4 inch Osmel drain was placed around the nerve and used to elevate the nerve out of its bed. The posterior attachments were released, and the nerve was transposed anteriorly and subcutaneously. In order to prevent a neosite of compression, the intramuscular septum was transected at the medial epicondyle and removed for a distance of several centimeters proximally. A subcutaneous sling was fashioned by suturing the subcutaneous fascia to the tissue around the medial epicondyle using 3-0 Vicryl in an interrupted manner. Care was taken to ensure that the nerve was not compressed or kinked during this maneuver. The elbow was placed through a range of motion verifying the adequacy of the transposition. The wound was copiously irrigated and closed as follows: 3-0 Vicryl was used to close the deep dermis in a buried interrupted fashion, and 5-0 nylon was used in an interrupted horizontal mattress fashion to approximate the skin. A Marcaine field block was performed at the operative site. The tourniquet was deflated. All the fingers pinked up nicely. A sterile bulky conforming bandage was applied from axilla to wrist. This was held in place with loosely wrapped Dillon wraps. The patient tolerated the procedure well and was brought to the recovery room in satisfactory condition. The patient was discharged with a postoperative instruction sheet as well as a followup appointment. MD MEG Solis/MARII /[id number]
[2019-06-14 09:50] VITALS: BP 139/80
--- NOTE | 2019-06-14 12:58 | Operative Report ---
DATE OF PROCEDURE: 06/14/2019 SURGEON: Russell Zaragoza MD PREOPERATIVE DIAGNOSIS: Left cubital tunnel syndrome. POSTOPERATIVE DIAGNOSIS: Left cubital tunnel syndrome. PROCEDURE: 1. Left ulnar nerve transposition. 2. Flexor pronator muscle flap. ANESTHESIA: General. HISTORY: The patient is a 53-year-old male with EMG-proven cubital tunnel syndrome. Risks, benefits, and alternatives of treatment were discussed with the patient, and they are prepared to undergo the procedures outlined. DESCRIPTION OF PROCEDURE: The patient was brought to the operating theater and after the induction of adequate general inhalation anesthesia was prepped and draped in a supine position. A time out was performed by the entire operating room team. An incision was marked out from the medial epicondyle extending both proximally and distally for approximately 4-5 cm in each limb. The left upper extremity was exsanguinated, and the tourniquet was inflated to a pressure of 250 mmHg. The incision was made through the skin and subcutaneous tissues, and all venous tributaries were controlled using the electrocautery. The incision was deepened through the subcutaneous tissue, and all the sensory medial antebrachial cutaneous branches that were identified were protected and preserved throughout the dissection. At this point, the dissection was continued directly onto the medial epicondyle. The skin and subcutaneous tissues were then elevated off the medial epicondyle and the flexor pronator muscle mass. Proximal to the medial epicondyle the intramuscular septum was identified, and the ulnar nerve was identified just posterior to the intramuscular septum. The overlying tissue over the ulnar nerve was gently incised, taking care to protect and preserve the ulnar nerve. With the ulnar nerve in site, the overlying tissue was incised from proximal to distal through the cubital tunnel releasing the compressing structures of the ulnar nerve. At the distal aspect of the cubital tunnel, the flexor pronator muscle mass was divided, and the dissection of the ulnar nerve continued until the 1st and 2nd muscular branches were identified. At this point, the medial epicondyle was marked out and an incision approximately 1.5 cm from the epicondyle was made through the fascial and muscular tissues using the electrocautery. Hemostasis was made absolute using the electrocautery. The entire flexor pronator muscle mass was elevated out of its bed in order to allow transposition of the nerve. The nerve was then gently elevated out of the cubital tunnel using a Osmel drain for traction. The posterior attachments were released, and the nerve was then transposed anteriorly. The transposition was noted to provide adequate relief of tension from the compressing structures on the nerve. The medial intramuscular septum was excised from the medial epicondyle and for a distance of several centimeters proximally in order to prevent compression. With the nerve transposed submuscularly, the elbow was placed through a range of motion and there was noted to be good gliding of the nerve and no kinking or acuity throughout its course. At this point, the flexor pronator muscle mass was repaired to the cuff of tissue on the medial epicondyle using 2-0 Vicryl in an interrupted horizontal mattress fashion. The elbow was placed through a range of motion again, and the nerve was visualized and there was noted to be no compression. The wound was then copiously irrigated with bacteriostatic saline and closed in layers. A 4-0 Vicryl was used in an interrupted buried fashion to approximate the deep dermis and 5-0 nylon was used in an interrupted horizontal mattress fashion. A Marcaine field block was performed at the operative site. The tourniquet was deflated. All the fingers pinked up nicely and a sterile bulky conforming bandage was applied from the axilla to the hand. A fiberglass splint was fashioned to maintain the elbow at approximately 90 degrees of flexion and this was held in place with a loosely wrapped Dillon wrap. The estimated blood loss of the procedure was negligible. The patient tolerated the procedure well and was brought to the recovery room in satisfactory condition and discharged with a postoperative instruction sheet as well as a followup appointment. MD MEG Solis/MODL /[id number]
== END | disposition home or self-care (01) ==
LOC: OR 06:13
PROVIDERS: ATTEND Plastic Surgery
DX: G56.22 Lesion of ulnar nerve, left upper limb (principal); I45.10 Unspecified right bundle-branch block; I25.810 Atherosclerosis of coronary artery bypass graft(s) without angina pectoris; I10 Essential (primary) hypertension; E11.9 Type 2 diabetes mellitus without complications; G40.909 Epilepsy, unspecified, not intractable, without status epilepticus; Z88.8 Allergy status to other drugs, medicaments and biological substances; Z79.02 Long term (current) use of antithrombotics/antiplatelets; Z79.82 Long term (current) use of aspirin; Z79.84 Long term (current) use of oral hypoglycemic drugs; Z95.1 Presence of aortocoronary bypass graft; Z87.891 Personal history of nicotine dependence
CPT/HCPCS: 36415; 64718; 80048; 82948; 85025; 93005; J0131; J0690; J1100; J1170; J1885; J2001; J2405; J2704